=== PATIENT | female | born 1975 | race Caucasian/White ===

== ENCOUNTER 2024-09-08 03:33 | Day surgery (SDC) | payer OTHER, SELFPAY ==
[2024-08-31 14:32] VITALS: BMI 21.6
--- NOTE | 2024-08-31 14:41 | PC.NURSE ---
Report to the Outpatient Waiting Room, entrance under the green pavilion located off [facility], at time _0830_ on date _[id number]_. Planned Procedure Time: _1030_.? Time changes happen often and if your time is changed the preop area will call you the afternoon before. - You and your visitor will be asked to self-screen and do not enter if you have any COVID symptoms. Please call surgeon if you need to reschedule. - A mask is optional within the hospital at this time. Patients may have clear liquids (water, carbonated beverages, clear teas, apple juice) until 3 hours prior to surgery with a maximum of 20 ounces. - No food from midnight until time of surgery and no smoking, or chewing tobacco (or any form of nicotine). No chewing gum, candy or mints. Take only the following medications with a SIP of water on the morning of surgery: ___None____ DO NOT STOP ANY OF YOUR OTHER PRESCRIPTION MEDICATIONS PRIOR TO SURGERY EXCEPT THE FOLLOWING Hold all vitamins and supplements for 3 days per anesthesiologist. Medications to discontinue per physician Date to take last dose Please no make-up, nail indian, hairspray, perfume, deodorant, or body powder the day of surgery.? No jewelry (including any body piercings) or valuables the day of surgery, leave them at home.? Please take a shower or bath the night before, or the morning of, surgery with an antibacterial soap.? Wear comfortable, loose fitting clothing.? - Jewelry must be removed prior to entering the operating room.? Rings and piercings that are not removed may be cut off. - The hospital will not accept responsibility for valuables.? - Please leave all valuables, including medications, at home the day of surgery. If you are going home after surgery, a licensed pick up and delivery driver must drive you home.? - NO public transportation without another adult if you receive anesthesia. - We recommend that an adult stay with you for 24 hours following discharge. - We also recommend that you do not drive, make important decision, drink alcoholic beverages, or take any drugs that were not prescribed by your health care provider for at least 24 hours after your discharge time. Follow any additional instructions given to you from your surgeon. Telephone instructions given to __Wendy___and asked if any additional questions and then verbalized understanding. Patient advised to call surgeon office or pre surgery nurse liaison [phone] if any additional questions.
[2024-09-08] VITALS (7 sets, daily range): BP systolic 117–147; BP diastolic 63–98; PULSE 81–97; RESP 12–16; TEMP 36.4–36.6; O2SAT 94–100; BMI 21.9
--- OUTSIDE RECORDS SUMMARY | 2024-09-08 03:36 | XMS_ITS | Encounter Summary ---
Author Organization [employer] Address [address] [place] [address] Care Team Providers Care Certified Master Locksmith Name Role Phone Sheridan Ferrer Primary Care Provider +1- [phone] Encounter Details Date Type Department Care Team (Late st Contact Info) Description 06/12/2004 Outpatient Historical [facility] Barbara Paula Er, Authorized P NO ADDRESS ON FILE HEADACHE (Primary Dx) Social History Tobacco Use Types Packs/Day Years Used Date Smoking Tobacco: Never Assessed Comments Unknown Sex and Gender Information Value Date Recorded Sex Assigned at Not on file Legal Sex Female 4:10 AM INSPECTOR PLUG SEAM Gender Identity Not on file Sexual Orientation Not on file documented as of this encounter Plan of Treatment Not on file documented as of this encounter Procedures Procedure Name Priority Date/Time Associated Diagnosis Comments CK Routine 06/12/2004 1:44 PM INSPECTOR PLUG SEAM documented in this encounter Results * CK (06/12/2004 1:44 PM INSPECTOR PLUG SEAM) CK 52 10 - 145 U/L INTERFACE SYSTEM 06/12/2004 1:44 PM INSPECTOR PLUG SEAM us Barbara Hill CHEMISTRY ORDERABLES Final Resul t INTERFACE SYSTEM Refer to clinic/hospital department documented in this encounter Visit Diagnoses Diagnosis Headache(784.0)- Primary Headache documented in this encounter Additional Health Concerns Infection Onset Date Last Indicated Resolved Time R/O COVID-19 02/01/2024 02/01/2024 02/01/2024 10:5 1 AM INSPECTOR PLUG SEAM documented as of this encounter Care Teams Certified Master Locksmith Relationship Specialty Start Date End Date Sheridan Ferrer PA PCP - General Physician Block Cleaner 02/02/18 documented as of this encounter
--- OUTSIDE RECORDS SUMMARY | 2024-09-08 03:36 | XMS_ITS | Encounter Summary ---
Author Organization [employer] Address [address] [place] [address] Care Team Providers Care Coordinate Measuring Machine Operator Name Role Phone Sheridan Ferrer Primary Care Provider +1- [phone] Encounter Details Date Type Department Care Team (Late st Contact Info) Description 10/07/1999 Outpatient Historical [facility] Carlos Donald MD [address] [facility] [address] [place] [id number] Social History Tobacco Use Types Packs/Day Years Used Date Smoking Tobacco: Never Assessed Comments Unknown Sex and Gender Information Value Date Recorded Sex Assigned at Not on file Legal Sex Female 4:10 AM COMPUTER TESTER Gender Identity Not on file Sexual Orientation Not on file documented as of this encounter Plan of Treatment Not on file documented as of this encounter Visit Diagnoses Not on filedocumented in this encounter Additional Health Concerns Infection Onset Date Last Indicated Resolved Time R/O COVID-19 02/01/2024 02/01/2024 02/01/2024 10:5 1 AM COMPUTER TESTER documented as of this encounter Care Teams Coordinate Measuring Machine Operator Relationship Specialty Start Date End Date Sheridan Ferrer PA PCP - General Physician Office Manager 02/02/18 documented as of this encounter
--- OUTSIDE RECORDS SUMMARY | 2024-09-08 03:36 | XMS_ITS | Encounter Summary ---
Author Organization [employer] Address [address] [place] [address] Care Team Providers Care Roller Skates Assembler Name Role Phone Sheridan Ferrer Primary Care Provider +1- [phone] Encounter Details Date Type Department Care Team (Late st Contact Info) Description 06/12/2004 Outpatient Historical [facility] RADIOLOG[facility] Reymundo Dye MD [address] [place] [address] MIGRAINE NOS W/O MENTN INTRACTABLE (Primary Dx) Social History Tobacco Use Types Packs/Day Years Used Date Smoking Tobacco: Never Assessed Comments Unknown Sex and Gender Information Value Date Recorded Sex Assigned at Not on file Legal Sex Female 4:10 AM WEAVING TEACHER Gender Identity Not on file Sexual Orientation Not on file documented as of this encounter Plan of Treatment Not on file documented as of this encounter Visit Diagnoses Diagnosis Migraine, unspecified, without mention of intractable migraine without mention of status migrainosus- Primary documented in this encounter Additional Health Concerns Infection Onset Date Last Indicated Resolved Time R/O COVID-19 02/01/2024 02/01/2024 02/01/2024 10:5 1 AM WEAVING TEACHER documented as of this encounter Care Teams Roller Skates Assembler Relationship Specialty Start Date End Date Sheridan Ferrer PA PCP - General Physician Fitness Services Manager 02/02/18 documented as of this encounter
--- OUTSIDE RECORDS SUMMARY | 2024-09-08 03:36 | XMS_ITS | Encounter Summary ---
Author Organization [facility] Address [address] [place] [address] Care Team Providers Care Information Engineer Name Role Phone Sheridan Ferrer Primary Care Provider +1- [phone] Encounter Details Date Type Department Care Team (Late st Contact Info) Description 06/12/2004 Outpatient Historical [facility] [address] [place] [address] Yung Betancourt MD [address] [facility] [address] [address] Social History Tobacco Use Types Packs/Day Years Used Date Smoking Tobacco: Never Assessed Comments Unknown Sex and Gender Information Value Date Recorded Sex Assigned at Not on file Legal Sex Female 4:10 AM UPFITTER Gender Identity Not on file Sexual Orientation Not on file documented as of this encounter Plan of Treatment Not on file documented as of this encounter Visit Diagnoses Not on filedocumented in this encounter Additional Health Concerns Infection Onset Date Last Indicated Resolved Time R/O COVID-19 02/01/2024 02/01/2024 02/01/2024 10:5 1 AM UPFITTER documented as of this encounter Care Teams Information Engineer Relationship Specialty Start Date End Date Sheridan Ferrer PA PCP - General Physician Wood Box Maker 02/02/18 documented as of this encounter
--- OUTSIDE RECORDS SUMMARY | 2024-09-08 03:36 | XMS_ITS | Encounter Summary ---
Author Organization [facility] Address [address] [place] [address] Care Team Providers Care Label Drier Name Role Phone Sheridan Ferrer Primary Care Provider +1- [phone] Encounter Details Date Type Department Care Team (Late st Contact Info) Description 06/11/2000 Outpatient Historical [facility] Medicine [place] [address] [facility] [address] [place] [address] Yg Elliott MD [address] [place] [address] Social History Tobacco Use Types Packs/Day Years Used Date Smoking Tobacco: Never Assessed Comments Unknown Sex and Gender Information Value Date Recorded Sex Assigned at Not on file Legal Sex Female 4:10 AM BAGGAGE PORTER HEAD Gender Identity Not on file Sexual Orientation Not on file documented as of this encounter Plan of Treatment Not on file documented as of this encounter Visit Diagnoses Not on filedocumented in this encounter Additional Health Concerns Infection Onset Date Last Indicated Resolved Time R/O COVID-19 02/01/2024 02/01/2024 02/01/2024 10:5 1 AM BAGGAGE PORTER HEAD documented as of this encounter Care Teams Label Drier Relationship Specialty Start Date End Date Sheridan Ferrer PA PCP - General Physician Top Case Assembler 02/02/18 documented as of this encounter
--- OUTSIDE RECORDS SUMMARY | 2024-09-08 03:36 | XMS_ITS | Encounter Summary ---
Author Organization [facility] Address [address] [place] [address] Care Team Providers Care Outpatient Physical Therapist Assistant Name Role Phone Sheridan Ferrer Primary Care Provider +1- [phone] Encounter Details Date Type Department Care Team (Late st Contact Info) Description 01/23/2003 Outpatient Historical [facility] Medicine [place] [address] [place] [address] [address] [place] [address] Reymundo Dye MD [address] [place] [address] Social History Tobacco Use Types Packs/Day Years Used Date Smoking Tobacco: Never Assessed Comments Unknown Sex and Gender Information Value Date Recorded Sex Assigned at Not on file Legal Sex Female 4:10 AM BUSINESS ANALYTICS FACULTY MEMBER Gender Identity Not on file Sexual Orientation Not on file documented as of this encounter Plan of Treatment Not on file documented as of this encounter Visit Diagnoses Not on filedocumented in this encounter Additional Health Concerns Infection Onset Date Last Indicated Resolved Time R/O COVID-19 02/01/2024 02/01/2024 02/01/2024 10:5 1 AM BUSINESS ANALYTICS FACULTY MEMBER documented as of this encounter Care Teams Outpatient Physical Therapist Assistant Relationship Specialty Start Date End Date Sheridan Ferrer PA PCP - General Physician Business Analytics Faculty Member 02/02/18 documented as of this encounter
--- OUTSIDE RECORDS SUMMARY | 2024-09-08 03:36 | XMS_ITS | Clinical Summary ---
Author Organization [facility] Address [address] [place] [address] Care Team Providers Care Bankruptcy Attorney Name Role Phone Sheridan Ferrer Primary Care Provider +1- [phone] Allergies Active Allergy Reactions Criticality Noted Date Comments Penicillins Anaphylaxis High 01/18/2010 Medications erenumab-aooe 140 mg/mL auto-injector INJECT 140MG (THE CONTENTS OF 1 AUTO-INJECTOR) SUBCUTANEOUSLY EVERY 30 DAYS 06/08/19 20 Active lisinopriL (PRINIVIL,ZESTRIL) 20 mg tablet Take 20 mg by mouth daily 07/18/19 20 Active sertraline (ZOLOFT) 50 mg tablet daily 02/01/20 20 Active SUMAtriptan-naprox en (TREXIMET) 85-500 mg per tablet TAKE 1 TAB BY MOUTH ONCE NEEDED FOR MIGRAINE. MAY REPEAT DOSE ONCE AFTER.. 04/14/19 18 Active topiramate (TOPAMAX) 50 mg tablet daily 09/27/19 20 Active metoclopramide (REGLAN) 10 mg tablet Take 10 mg by mouth 05/15/19 21 Active ondansetron ODT (ZOFRAN-ODT) 4 mg disintegrating tablet Take 4 mg by mouth every 8 (eight) hours as needed for nausea or vomiting Active cyanocobalamin (Vitamin B-12) 1,000 mcg/mL injectionIndicatio ns:Vitamin B12 Deficiency Inject 1 mL (1,000 mcg total) under the skin once a week for 30 days, THEN 1 mL (1,000 mcg total) every 14 (fourteen) days for 30 days, THEN 1 mL (1,000 mcg total) every 30 (thirty) days. Inject as directed. 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 Abdominal distention 02/26/2021 Nausea and vomiting 02/26/2021 Surgical History Surgery Date Site/Laterality Comments CHOLECYSTECTOMY HYSTERECTOMY SALPINGOOPHORECTOMY OTHER SURGICAL HISTORY Bladder stimulator Medical History Medical History Date Comments Chronic constipation Hypertension Migraine Family History Medical History Relation Name Comments Coronary artery disease Father Hypertension Father Diabetes Maternal Grandmother Relation Name Status Comments Father Alive Maternal Grandmother Mother Alive Social History Tobacco Use Types Packs/Day Years Used Date Smoking Tobacco: Every Day Cigarettes 0.2 15 AUDIT-C Answer Date Recorded Q1: How often do you have a drink containing alc ohol? 2-4 times a month 02/26/2021 Q2: How many drinks containi ng alcohol do you have on a typical day when you are drinking? 1 or 2 02/26/2021 Q3: How often do you have si x or more drinks on one occasion? Never 02/26/2021 Comments Unknown Sex and Gender Information Value Date Recorded Sex Assigned at Not on file Legal Sex Female 6:11 PM PARKING OFFICER Gender Identity Not on file Sexual Orientation Not on file Obstetrics History Last Filed Vital Signs Vital Sign Reading Time Taken Comments Blood Pressure 137/87 02/26/2021 8:36 AM PARKING OFFICER Pulse 85 02/26/2021 8:36 AM PARKING OFFICER Temperature 36.8 C (98.3 F) 02/26/2021 8:36 AM PARKING OFFICER Respiratory Rate - - Oxygen Saturation - - Inhaled Oxygen Concentration - - Weight 65.3 kg (144 lb) 02/26/2021 8:36 AM PARKING OFFICER Height 170.2 cm (5' 7) 02/26/2021 8:36 AM PARKING OFFICER Body Mass Index 22.55 02/26/2021 8:36 AM PARKING OFFICER Plan of Treatment Not [place] [address] [facility] [place] [address] [facility] Member Subscriber Plan / Payer (Ef fective 2018-Present) Name:ElleCorina Relation to Subscriber:Spouse Name:JACQUIE ALMEIDA Date of :1899 Payer ID:[id number] (NA) Type:[facility] HMO/PPO Address: [place] [id number] [place] [address] Care Teams Bankruptcy Attorney Relationship Specialty Start Date End Date Sheridan Ferrer PA [address] [facility] [place] [id number] PCP - General 04/30/20
--- OUTSIDE RECORDS SUMMARY | 2024-09-08 03:36 | XMS_ITS | Encounter Summary ---
Author Organization [facility] Address [address] [place] [address] Care Team Providers Care Field Service Manager Name Role Phone Sheridan Ferrer Primary Care Provider +1- [phone] Encounter Details Date Type Department Care Team (Late st Contact Info) Description 03/09/2000 Outpatient Historical [facility] Medicine [address] [place] [address] Jordan Mora Social History Tobacco Use Types Packs/Day Years Used Date Smoking Tobacco: Never Assessed Comments Unknown Sex and Gender Information Value Date Recorded Sex Assigned at Not on file Legal Sex Female 4:10 AM AUTOMOBILE DAMAGE FIELD APPRAISER Gender Identity Not on file Sexual Orientation Not on file documented as of this encounter Plan of Treatment Not on file documented as of this encounter Visit Diagnoses Not on filedocumented in this encounter Additional Health Concerns Infection Onset Date Last Indicated Resolved Time R/O COVID-19 02/01/2024 02/01/2024 02/01/2024 10:5 1 AM AUTOMOBILE DAMAGE FIELD APPRAISER documented as of this encounter Care Teams Field Service Manager Relationship Specialty Start Date End Date Sheridan Ferrer PA PCP - General Physician Manager Graphic 02/02/18 documented as of this encounter
--- OUTSIDE RECORDS SUMMARY | 2024-09-08 03:36 | XMS_ITS | Encounter Summary ---
Author Organization [facility] Address [address] [place] [address] Phone Care Team Providers Care Director Of National Sales Name Role Phone Sheridan Ferrer Primary Care Provider +1- [phone] Encounter Details Date Type Department Care Team (Late st Contact Info) Description 10/04/2021 Orders Only [facility] Scanning, Provider Social History Tobacco Use Types Packs/Day Years [...] on file Legal Sex Female 6:11 PM HYPOID GEAR GENERATOR Gender Identity Not on file Sexual Orientation Not on file documented as of this encounter Plan of Treatment Not on file documented as of this encounter Procedures Procedure Name Priority Date/Time Associated Diagnosis Comments SCAN - LABS 10/04/2021 documented in this encounter Results * SCAN - LABS (10/04/2021) us Provider Scanning Edited Result - Final documented in this encounter Visit Diagnoses Not on filedocumented in this encounter Care Teams Director Of National Sales Relationship Specialty Start Date End Date Sheridan Ferrer PA [address] [facility] [place] [address] PCP - General 04/30/20 documented as of this encounter
--- OUTSIDE RECORDS SUMMARY | 2024-09-08 03:36 | XMS_ITS | Encounter Summary ---
Author Organization [facility] Address [address] [place] [address] Phone Care Team Providers Care Pot Puncher Name Role Phone Sheridan Ferrer Primary Care Provider +1- [phone] Encounter Details Date Type Department Care Team ([facility] Contact Info) Description 06/04/2021 Orders Only [facility] Scanning, Provider Social [...] on file Legal Sex Female 6:11 PM UTILITY WORKER FILM PROCESSING Gender Identity Not on file Sexual Orientation Not on file documented as of this encounter Plan of Treatment Not on file documented as of this encounter Procedures Procedure Name Priority Date/Time Associated Diagnosis Comments SCAN - LABS 06/04/2021 documented in this encounter Results * SCAN - LABS (06/04/2021) us Provider Scanning Final Result documented in this encounter Visit Diagnoses Not on filedocumented in this encounter Care Teams Pot Puncher Relationship Specialty [place] [address] [place], [place] [address], [place] [address] PCP - General 04/30/20 documented as of this encounter
--- OUTSIDE RECORDS SUMMARY | 2024-09-08 03:36 | XMS_ITS | Encounter Summary ---
Author Organization [employer] Address [address] [place] [address] Care Team Providers Care Vice President Compliance Name Role Phone Sheridan Ferrer Primary Care Provider +1- [phone] Encounter Details Date Type Department Care Team (Latest Contact Info) Description 10/25/2001 Outpatient Historical [facility] WASH Gabriel Mcgrath MD [address] [place] [address] FOREIGN BDY EXT EYE NOS (Primary Dx) Social History Tobacco Use Types Packs/Day Years Used Date Smoking Tobacco: Never Assessed Comments Unknown Sex and Gender Information Value Date Recorded Sex Assigned at Not on file Legal Sex Female 4:10 AM NAILHEAD OPERATOR Gender Identity Not on file Sexual Orientation Not on file documented as of this encounter Plan of Treatment Not on file documented as of this encounter Visit Diagnoses Diagnosis Foreign body in unspecified site on external eye- Primary documented in this encounter Additional Health Concerns Infection Onset Date Last Indicated Resolved Time R/O COVID-19 02/01/2024 02/01/2024 02/01/2024 10:5 1 AM NAILHEAD OPERATOR documented as of this encounter Care Teams Vice President Compliance Relationship Specialty Start Date End Date Sheridan Ferrer PA PCP - General Physician Land Conservation Specialist 02/02/18 documented as of this encounter
--- OUTSIDE RECORDS SUMMARY | 2024-09-08 03:36 | XMS_ITS ---
Author Organization [facility] Address [address] [place] [address] Care Team Providers Care Hide Tanner Name Role Phone Sheridan Estrella Primary Care Physician [phone] Provider, Abstract Attending Clinician Unavailab le Problems Condition Name Condition Details Condition Category Status Onset Date Resolution Date Last Treatment Date Treating Clinician Comments Complicated UTI (urinary tract infection) Complicated UTI (urinary tract infection) 28409359 Active 2023-03 00:00: 00 Pyelonephri tis of right kidney Pyelonephri tis of right kidney 33617619 Active 2023-03 00:00: 00 Normocytic anemia Normocytic anemia 62878702 Active 2023-03 00:00: 00 Slow transit constipatio n Slow transit constipatio n 33393333 2020-03 00:00: 00 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 n 72180090 2020-03 00:00: 00 Abdominal distention Abdominal distention 34950403 2020-03 00:00: 00 Nausea and vomiting Nausea and vomiting 61027150 Active 2020-03 00:00: 00 Deviated septum Deviated septum 09303346 Active 08-30 00:00: 00 Nasal turbinate hypertrophy Nasal turbinate hypertrophy 54846163 Active 08-30 00:00: 00 Nasal obstruction Nasal obstruction 81188550 Active 08-30 00:00: 00 Ileus Ileus 97147063 Active 2019-03 00:00: 00 Follow-up examination , following other surgery Follow-up examination , following other surgery 91371712 Active 18 00:00: 00 Stress fracture of left tibia Stress fracture of left tibia 43365117 Active 11-24 00:00: 00 Left knee pain Left knee pain 03426792 Active 11-10 00:00: 00 Knee bursitis Knee bursitis 47838411 Active 11-01 00:00: 00 Constipatio n Constipatio n 30590217 Active 2009-03 00:00: 00 IBS (irritable bowel syndrome) IBS (irritable bowel syndrome) 96355433 Active 2009-03 00:00: 00 Seizure, had 2 seizures in approx. 2003, none since. Seizure, had 2 seizures in approx. 2003, none since. 24385723 Active 2009-03 00:00: 00 Migraine with aura Migraine with aura 06649065 Active 06-11 00:00: 00 Fecal impaction Fecal impaction 84113802 Active Allergies, Adverse Reactions, Alerts Allergy Name Allergy Type Status Severity Reaction(s) Onset Date Inactive Date Treating Clinician Comments Penicillins Allergy to substance Active 2009-03 00:00: 00 Penicillins Propensity to adverse reactions to drug Active Anaphylaxis 2009-03 00:00: 00 Medications Ordered Medication Name Filled Medication Name Start Date Stop Date Current Medication? Ordering Clinician Indication Dosage Frequency Signature (SIG) Comments Components lisinopril (PRINIVIL) 20 mg tablet 2023-03 12:58: 32 Yes 20mg QD Take 20 mg by mouth daily. cyanocobala min (Vitamin B-12) 1,000 mcg/mL injection 2020-03 00:00: 00 Yes [id number] Inject 1 mL (1,000 mcg total) under the skin once a week for 30 days, THEN 1 mL (1,000 mcg total) every 14 (fourteen) days for 30 days, THEN 1 mL (1,000 mcg total) every 30 (thirty) days. Inject as directed. ondansetron ODT (ZOFRAN-ODT ) 4 mg disintegrat ing tablet 2020-03 09:07: 12 Yes 4mg Take 4 mg by mouth every 8 (eight) hours as needed for nausea or vomiting doxycycline hyclate (VIBRAMYCIN ) 100 mg tablet 12-24 00:00: 00 Yes 100mg Q.5D Take 1 Tablet (100 mg) by mouth 2 times daily. mupirocin (BACTROBAN) 2 % Ointment 12-24 00:00: 00 Yes Apply into nose once daily. prucaloprid e (Motegrity) 1 mg Tablet 907 00:00: 00 Yes 1mg QD Take 1 Tablet (1 mg) by mouth daily. valACYclovi r (VALTREX) 1 gram tablet 18 00:00: 00 Yes 2g Take 2 Grams by mouth. metoclopram goran (REGLAN) 10 mg tablet 2-16 00:00: 00 Yes 10mg Take 10 mg by mouth metoclopram goran HCl (REGLAN) 5 mg/5 mL solution 2019-03 2-22 00:00: 00 Yes [id number] 5mg Q.[id number] 3D Take 5 mL (5 mg) by mouth 3 times daily. DULoxetine (CYMBALTA) 30 mg Capsule, Delayed Release(E.C .) 2019-03 2 00:00: 00 Yes sertraline (ZOLOFT) 50 mg tablet 2019-03 1- 00:00: 00 Yes sertraline (ZOLOFT) 50 mg tablet 2019-03 104 00:00: 00 Yes QD daily topiramate (TOPAMAX) 50 mg tablet 2019-03 0-30 00:00: 00 Yes topiramate (TOPAMAX) 50 mg tablet 630 00:00: 00 Yes QD daily lisinopriL (PRINIVIL,Z ESTRIL) 20 mg tablet 4-20 00:00: 00 Yes 20mg QD Take 20 mg by mouth daily AIMOVIG AUTOINJECTO R 140 mg/mL Auto-Inject or - 00:00: 00 Yes INJECT 140MG (THE CONTENTS OF 1 AUTO-INJEC TOR) SUBCUTANEO USLY EVERY 30 DAYS erenumab-ao oe 140 mg/mL auto-inject or 06-07 00:00: 00 Yes INJECT 140MG (THE CONTENTS OF 1 AUTO-INJEC TOR) SUBCUTANEO USLY EVERY 30 DAYS ondansetron (ZOFRAN) 4 mg Tablet 2019-0 3-18 00:00: 00 Yes 4mg Q6H Take 1 Tablet (4 mg) by mouth every 6 hours as needed for Nausea/Wendy sis. polyethylen e glycol 3350 (MIRALAX ORAL) 3-08 00:00: 00 Yes 17g Take 17 Grams by mouth. SUMAtriptan -naproxen (TREXIMET) 85-500 mg tablet 04-14 00:00: 00 Yes [id number] TAKE 1 TAB BY MOUTH ONCE NEEDED FOR MIGRAINE. MAY REPEAT DOSE ONCE AFTER.. SUMAtriptan -naproxen (TREXIMET) 85-500 mg per tablet 04-14 00:00: 00 Yes TAKE 1 TAB BY MOUTH ONCE NEEDED FOR MIGRAINE. MAY REPEAT DOSE ONCE AFTER.. Procedures Procedure Date / Time Performed Performing Clinicia n Device COLONOSCOPY REPORT 2020-04-03 14:27:15 Solange Calabrese MAMMOGRAM REPORT 2017-01-16 00:00:00 Jose Napier Encounters Start Date/Time End Date/Time Encounter Type Admission Type Attending [facility] Care Department Encounter ID 2024-08-30 00:00:00 2024-08-30 18:15:04 External Device Data Provider, Abstract 1.2.840.1 [id number] 3.188.2.7 .2.710142 .20 STL ABSTRACTION [id number] 2024-08-23 00:00:00 2024-08-24 00:08:43 External Device Data Provider, Abstract 1.2.840.1 56699.1.1 3.188.2.7 .2.026342 .20 STL ABSTRACTION [id number] 2024-08-17 00:00:00 2024-08-19 18:03:02 External Device Data Provider, Abstract 1.2.840.1 87606.1.1 3.188.2.7 .2.418085 .20 STL ABSTRACTION [id number] 2024-08-16 00:00:00 2024-08-17 23:09:50 External Device Data Provider, Abstract 1.2.840.1 74394.1.1 3.188.2.7 .2.738066 .20 STL ABSTRACTION [id number] 2024-07-19 00:00:00 2024-07-19 17:12:47 External Device Data Provider, Abstract 1.2.840.1 19062.1.1 3.188.2.7 .2.213909 .20 STL ABSTRACTION [id number] 2024-07-19 00:00:00 2024-07-19 16:17:34 External Device Data Provider, Abstract 1.2.840.1 28747.1.1 3.188.2.7 .2.704067 .20 STL ABSTRACTION [id number] 2024-06-28 00:00:00 2024-06-29 05:05:38 External Device Data Provider, Abstract 1.2.840.1 85905.1.1 3.188.2.7 .2.932949 .20 STL ABSTRACTION [id number] 2024-06-21 00:00:00 2024-06-21 21:06:11 External Device Data Provider, Abstract 1.2.840.1 51221.1.1 3.188.2.7 .2.463289 .20 STL ABSTRACTION [id number] 2024-06-21 00:00:00 2024-06-21 15:53:10 External Device Data Provider, Abstract 1.2.840.1 24644.1.1 3.188.2.7 .2.642802 .20 STL ABSTRACTION [id number] 2024-06-07 00:00:00 2024-06-09 15:13:37 External Device Data Provider, Abstract 1.2.840.1 87581.1.1 3.188.2.7 .2.272908 .20 STL ABSTRACTION [id number] 2024-06-07 00:00:00 2024-06-08 07:37:40 External Device Data Provider, Abstract 1.2.840.1 40389.1.1 3.188.2.7 .2.891457 .20 STL ABSTRACTION [id number] 2024-06-04 00:00:00 2024-06-06 22:27:10 External Device Data Provider, Abstract 1.2.840.1 65393.1.1 3.188.2.7 .2.444451 .20 STL ABSTRACTION [id number] 2024-06-06 00:00:00 2024-06-06 18:48:03 External Device Data Provider, Abstract 1.2.840.1 20041.1.1 3.188.2.7 .2.220702 .20 STL ABSTRACTION [id number] 2024-06-03 00:00:00 2024-06-05 00:28:26 External Device Data Provider, Abstract 1.2.840.1 69873.1.1 3.188.2.7 .2.577806 .20 STL ABSTRACTION [id number] 2024-05-17 00:00:00 2024-05-17 20:30:38 External Device Data Provider, Abstract 1.2.840.1 09417.1.1 3.188.2.7 .2.376344 .20 STL ABSTRACTION [id number] 2024-04-26 00:00:00 2024-04-27 11:58:19 External Device Data Provider, Abstract 1.2.840.1 11786.1.1 3.188.2.7 .2.199917 .20 STL ABSTRACTION [id number] 2024-04-26 00:00:00 2024-04-26 21:15:01 External Device Data Provider, Abstract 1.2.840.1 64324.1.1 3.188.2.7 .2.767784 .20 STL ABSTRACTION [id number] 2024-04-20 00:00:00 2024-04-23 02:06:02 External Device Data Provider, Abstract 1.2.840.1 77778.1.1 3.188.2.7 .2.839787 .20 STL ABSTRACTION [id number] 2024-04-20 00:00:00 2024-04-21 10:54:11 External Device Data Provider, Abstract 1.2.840.1 04713.1.1 3.188.2.7 .2.657854 .20 STL ABSTRACTION [id number] 2024-04-12 00:00:00 2024-04-12 21:21:08 External Device Data Provider, Abstract 1.2.840.1 29950.1.1 3.188.2.7 .2.183608 .20 STL ABSTRACTION [id number] 2024-03-29 00:00:00 2024-03-29 20:14:05 External Device Data Provider, Abstract 1.2.840.1 86663.1.1 3.188.2.7 .2.857785 .20 STL ABSTRACTION [id number] Family History Family Member Diagnosis Comments Start Date Stop Date Natural father Coronary artery disease Natural father Hypertension Natural father Heart Disease Natural father Stroke Maternal grandmother Diabetes Maternal grandmother Heart Disease Maternal grandmother Hypertension Maternal grandmother Kidney Disease Natural brother Healthy Natural daughter Hypertension Natural daughter Other Maternal grandfather Other Natural mother Other Paternal grandfather Cancer Paternal grandmother Heart Disease Natural son Other Social History Social Habit Start Date Stop Date Comments Sexual orientation History of Occupation ASSERTION Gender identity Alcoholic beverage intake 2024-02-01 00:00:00 00:00:00 History of Social function 2024-02-01 00:00:00 2024-01 00:00:00 Cigarettes smoked current (p ack per day) - Reported 2012-09-07 00:00:00 2012-09-07 00:00:00 Cigarette pack-years 2012-09-07 00:00:00 2012-09-07 00 :00:00 Tobacco use and exposure 2012-09-07 00:00:00 2012-08-28 1 00:00:00 Sex 2012-02-17 04:10:42 2012-02-17 04:10:42 Tobacco Comment 2010-01-21 00:00:00 2010-01-21 00:00:0 0 Alcohol Comment 2010-01-21 00:00:00 2010-01-21 00:00:0 0 Sex assigned at 1975 00:00:00 1975 0 0:00:00 Smoking Status Start Date Stop Date Tobacco smoking consumption unknown History of tobacco use Smokes tobacco daily 2021-02-26 00:00:00 2021-01 00:00:00 Ex-smoker 2012-09-07 00:00:00 2012-09-07 0 0:00:00 Plan of Treatment Planned Activity Planned Date Details Comments Future Scheduled Test 2027-04-03 00:00:00 Colono scopy (procedure) [code = 31824473] Future Scheduled Test 2027-04-03 00:00:00 Screen ing for malignant neoplasm of colon (procedure) [code = 846806959] Future Scheduled Test 2024-09-07 09:40:00 Screen ing for malignant neoplasm of colon (procedure) [code = 081959272] Future Scheduled Test 2024-09-07 09:40:00 Screen ing for malignant neoplasm of colon (procedure) [code = 671235644] Future Scheduled Test 2024-09-07 09:40:00 Screen ing for malignant neoplasm of colon (procedure) [code = 662572249] Future Scheduled Test 2024-09-07 09:40:00 Screen ing for malignant neoplasm of colon (procedure) [code = 407217842] Future Scheduled Test 2024-09-07 09:40:00 Screen ing for malignant neoplasm of colon (procedure) [code = 120261783] Future Scheduled Test 2024-09-07 09:40:00 LIPID TESTING [code = LIPID TESTING] Future Scheduled Test 2024-09-07 09:40:00 MAMMOGRAM [c ode = MAMMOGRAM] Future Scheduled Test 2024-09-07 09:40:00 HIV SC REENING [code = HIV SCREENING] Future Scheduled Test 2024-09-07 09:40:00 HEPATI TIS C SCREENING [code = HEPATITIS C SCREENING] Future Scheduled Test 2024-09-07 09:40:00 Admini stration of third dose of vaccine product containing only acellular Bordetella pertussis and Clostridium tetani and Corynebacterium diphtheriae antigens (procedure) [code = 183994520] Future Scheduled Test 2024-09-07 09:40:00 Admini stration of vaccine product containing only Hepatitis B virus antigen (procedure) [code = 91869083] Future Scheduled Test 2024-09-07 09:40:00 PAP SMEAR [c ode = PAP SMEAR] Future Scheduled Test 2024-09-07 09:40:00 PAP wi th HPV [code = PAP with HPV] Future Scheduled Test 2024-09-07 09:40:00 COVID- 19 VACCINE ( season) [code = COVID-19 VACCINE ( season)] Future Scheduled Test 2024-09-07 09:40:00 DEPRES EUNICE SCREENING [code = DEPRESSION SCREENING] Future Scheduled Test 2024-09-07 09:40:00 Admini stration of vaccine product containing only Influenza virus antigen (procedure) [code = 78511543] Future Scheduled Test 2024-09-07 09:40:00 ZOSTER VACCINE (1 of 2) [code = ZOSTER VACCINE (1 of 2)] Future Scheduled Test 2024-09-07 09:40:00 Screen ing for malignant neoplasm of colon (procedure) [code = 762152865] Future Scheduled Test 2024-09-07 09:40:00 Screen ing for malignant neoplasm of colon (procedure) [code = 160637827] Diagnostic Test Pending 2023-10-29 00:00:00 INFL UENZA VACCINE (#1) [code = INFLUENZA VACCINE (#1)] Diagnostic Test Pending 2020-10-25 00:00:00 Scre ening for malignant neoplasm of colon (procedure) [code = 457983885] Diagnostic Test Pending 2020-10-25 00:00:00 Scre ening for malignant neoplasm of colon (procedure) [code = 107936709] Diagnostic Test Pending 2020-10-25 00:00:00 Scre ening for malignant neoplasm of colon (procedure) [code = 456710170] Diagnostic Test Pending 2018-01-16 00:00:00 Scre ening for malignant neoplasm of breast (procedure) [code = 990395979] Diagnostic Test Pending 1994-10-25 00:00:00 DTAP /TDAP/TD VACCINES (1 - Tdap) [code = DTAP/TDAP/TD VACCINES (1 - Tdap)] Diagnostic Test Pending 1994-10-25 00:00:00 Admi nistration of vaccine product containing only Hepatitis B virus antigen (procedure) [code = 85488033] Vital Signs Vital Name Observation Time Observation Value Commen ts Systolic blood pressure 2024-02-04 12:00:00 135 mm[Hg] Diastolic blood pressure 2024-02-04 12:00:00 66 mm[Hg] Heart rate 2024-02-04 12:00:00 71 /min Body temperature 2024-02-04 12:00:00 37.17 Denise Respiratory rate 2024-02-04 12:00:00 16 /min Oxygen saturation in Arteria l blood by Pulse oximetry 2024-02-04 12:00:00 99 % Body height 2024-02-01 13:17:00 170.2 cm Body weight 2024-02-01 13:17:00 65.091 kg BMI 2024-02-01 13:17:00 22.48 kg/m2 Systolic blood pressure 2021-02-26 08:36:00 137 mm[Hg] Diastolic blood pressure 2021-02-26 08:36:00 87 mm[Hg] Heart rate 2021-02-26 08:36:00 85 /min Body temperature 2021-02-26 08:36:00 36.83 Denise Height 2021-02-26 08:36:00 170.2 cm Body Weight 2021-02-26 08:36:00 65.318 kg BMI 2021-02-26 08:36:00 22.55 kg/m2
--- OUTSIDE RECORDS SUMMARY | 2024-09-08 03:36 | XMS_ITS | Referral Summary ---
Author Organization [facility] Address [address] [place] [address] Care Team Providers Care Director Telecommunications Name Role Phone Sheridan Ferrer Primary Care Provider [phone]- [phone] Allergies Active Allergy Reactions Criticality Noted Date [...] Abdominal distention 02/26/2021 Nausea and vomiting 02/26/2021 Social History Tobacco Use Types Packs/Day Years [...] on file Legal Sex Female 6:11 PM NEW MEDIA STRATEGIST Gender Identity Not on file Sexual Orientation Not on file Last Filed Vital Signs Vital Sign Reading Time Taken Comments Blood Pressure 137/87 02/26/2021 8:36 AM NEW MEDIA STRATEGIST Pulse 85 02/26/2021 8:36 AM NEW MEDIA STRATEGIST Temperature 36.8 C (98.3 F) 02/26/2021 8:36 AM NEW MEDIA STRATEGIST Respiratory Rate - - Oxygen Saturation - - Inhaled Oxygen Concentration - - Weight 65.3 kg (144 lb) 02/26/2021 8:36 AM NEW MEDIA STRATEGIST Height 170.2 cm (5' 7) 02/26/2021 8:36 AM NEW MEDIA STRATEGIST Body Mass Index 22.55 02/26/2021 8:36 AM NEW MEDIA STRATEGIST Plan of Treatment Not on file Insurance [facility] [place] [address] [facility] [place] [id number] Care Teams Director Telecommunications Relationship Specialty Start Date End Date Sheridan Ferrer PA [address] [facility] [place] [address] PCP - General 04/30/20
--- OUTSIDE RECORDS SUMMARY | 2024-09-08 03:36 | XMS_ITS | Clinical Summary ---
Author Organization [facility] Address [address] [place] [address] Care Team Providers Care Calibration Specialist Name Role Phone Sheridan Ferrer Primary Care Provider Source Comments [facility],non-owned Affiliates and Associated Physician Practices is amultiple site organization consisting of ambulatory clinics and hospital sitesin [place], [place], [place] and [place]. This disclosure is being madepursuant to the Care Everywhere program and may not contain all information available regarding this patient. 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 Gender Identity Not on file Sexual Orientation Not on file Plan of Treatment Health Maintenance Due Date Last Done Comments COLOGUARD (AGES 45-75) - COL ON CA SCREENING 1975 COLON MONITORING 1975 COLONOSCOPY - COLON CA SCREENING 1975 CT COLONOGRAPHY - COLON CA SCREENING 1975 Colorectal Cancer Screening 1975 FIT - COLON CA SCREENING 1975 FLEX SIG - COLON CA SCREENING 1975 LIPID TESTING 1975 MAMMOGRAM 1975 HIV SCREENING 10/25/1990 HEPATITIS C SCREENING 10/21/1993 DTAP/TDAP/TD VACCINES (1 - Tdap) 10/25/1994 HEPATITIS B VACCINE (1 of 3 - 19+ 3-dose series) 10/25/1994 PAP SMEAR 10/25/1996 PAP with HPV 10/25/2005 COVID-19 VACCINE (2023-2 5 season) 2023 DEPRESSION SCREENING 03/30/2024 INFLUENZA VACCINE (Season Ended) 2024 ZOSTER VACCINE (1 of 2) 10/25/2025 HIB VACCINE Aged Out No longer eligi ble based on patient's age to complete this topic HPV VACCINE Aged Out No longer eligi ble based on patient's age to complete this topic MENINGOCOCCAL (Group B) VACC INE SHARED DECISION-MAKING Aged Out No longer eligibl e based on patient's age to complete this topic MENINGOCOCCAL GROUPS A/C/Y/W VACCINE Aged Out No longer eligible b ased on patient's age to complete this topic PNEUMOCOCCAL VACCINE Aged Out No long er eligible based on patient's age to complete this topic Care Teams Calibration Specialist Relationship Specialty Start Date End Date Sheridan Ferrer PA [address] [place] [address] Veronica Mcgowan, [id number] PCP - General Physician Welder Shielded Metal Arc 12/07/22
--- OUTSIDE RECORDS SUMMARY | 2024-09-08 03:36 | XMS_ITS | Encounter Summary ---
Author Organization [facility] Address [address] [place] [address] Care Team Providers Care Mortgage Originator Name Role Phone Sheridan Ferrer Primary Care Provider [phone]- [phone] Encounter Details Date Type Department Care Team (Late st Contact Info) Description 06/11/2000 Outpatient Historical [facility] Medicine [address] [place] [address] Reymundo Dye MD [address] [place] [id number] Social History Tobacco Use Types Packs/Day Years Used Date Smoking Tobacco: Never Assessed Comments Unknown Sex and Gender Information Value Date Recorded Sex Assigned at Not on file Legal Sex Female 4:10 AM APPLICATION ENGINEER Gender Identity Not on file Sexual Orientation Not on file documented as of this encounter Plan of Treatment Not on file documented as of this encounter Visit Diagnoses Not on filedocumented in this encounter Additional Health Concerns Infection Onset Date Last Indicated Resolved Time R/O COVID-19 02/01/2024 02/01/2024 02/01/2024 10:5 1 AM APPLICATION ENGINEER documented as of this encounter Care Teams Mortgage Originator Relationship Specialty Start Date End Date Sheridan Ferrer PA PCP - General Physician Family Psychologist 02/02/18 documented as of this encounter
--- OUTSIDE RECORDS SUMMARY | 2024-09-08 03:36 | XMS_ITS | Encounter Summary ---
Author Organization [facility] Address [address] [place] [address] Care Team Providers Care Entry Level Machine Operator Name Role Phone Sheridan Ferrer Primary Care Provider [phone]- [phone] Encounter Details Date Type Department Care Team (Late st Contact Info) Description 06/12/2004 Outpatient Historical [facility] Mike River MD [address] [place] [address] [address] [place] [id number] CONVULSIONS, OTHER (CMS/HCC) (Primary Dx) Social History Tobacco Use Types Packs/Day Years Used Date Smoking Tobacco: Never Assessed Comments Unknown Sex and Gender Information Value Date Recorded Sex Assigned at Not on file Legal Sex Female 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 Gender Identity Not on file Sexual Orientation Not on file documented as of this encounter Plan of Treatment Not on file documented as of this encounter Procedures Procedure Name Priority Date/Time Associated Diagnosis Comments PROLACTIN Routine 06/12/2004 11:15 AM PERENNIAL HOUSE MANAGER documented in this encounter Results * PROLACTIN (06/12/2004 11:15 AM PERENNIAL HOUSE MANAGER) PROLACTIN 21.3 3.4 - 24.1 ng/mL INTERFACE SYSTEM Comment: Prolactin Reference Range: Female: Non 2.8 - 17.7 ng/mL 9.7 - 208.5 ng/mL Postmenopausal 1.8 - 20.3 ng/mL 06/12/2004 11:1 5 AM PERENNIAL HOUSE MANAGER us Mike River MD CHEMISTRY ORDERABLES Final R esult INTERFACE SYSTEM Refer to clinic/hospital department documented in this encounter Visit Diagnoses Diagnosis Other convulsions- Primary documented in this encounter Additional Health Concerns Infection Onset Date Last Indicated Resolved Time R/O COVID-19 02/01/2024 02/01/2024 02/01/2024 10:5 1 AM PERENNIAL HOUSE MANAGER documented as of this encounter Care Teams Entry Level Machine Operator Relationship Specialty Start Date End Date Sheridan Ferrer PA PCP - General Physician Player Development Manager 02/02/18 documented as of this encounter
--- OUTSIDE RECORDS SUMMARY | 2024-09-08 03:36 | XMS_ITS | Encounter Summary ---
Author Organization [facility] Address 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
--- OUTSIDE RECORDS SUMMARY | 2024-09-08 03:36 | XMS_ITS | Encounter Summary ---
Author Organization [facility] Address [address] [place] [address] Care Team Providers Care Finish Inspector Name Role Phone Sheridan Ferrer Primary Care Provider +1- [phone] Encounter Details Date Type Department Care Team (Late st Contact Info) Description 08/18/1998 Outpatient Historical [facility] Medicine [address] [place] [id number] Jordan Mora Social History Tobacco Use Types Packs/Day Years Used Date Smoking Tobacco: Never Assessed Comments Unknown Sex and Gender Information Value Date Recorded Sex Assigned at Not on file Legal Sex Female 4:10 AM SPOT CHECKER Gender Identity Not on file Sexual Orientation Not on file documented as of this encounter Plan of Treatment Not on file documented as of this encounter Visit Diagnoses Not on filedocumented in this encounter Additional Health Concerns Infection Onset Date Last Indicated Resolved Time R/O COVID-19 02/01/2024 02/01/2024 02/01/2024 10:5 1 AM SPOT CHECKER documented as of this encounter Care Teams Finish Inspector Relationship Specialty Start Date End Date Sheridan Ferrer PA PCP - General Physician Insole And Outsole Preparer 02/02/18 documented as of this encounter
--- OUTSIDE RECORDS SUMMARY | 2024-09-08 03:36 | XMS_ITS | Encounter Summary ---
Author Organization [facility] Address [address] [place] [address] Care Team Providers Care Svp Research & Ebusiness Operations Name Role Phone Sheridan Ferrer Primary Care Provider +1- [phone] Encounter Details Date Type Department Care Team (Late st Contact Info) Description 02/17/2000 Outpatient Historical [facility] Medicine [address] [place] [id number] Jordan Mora Social History Tobacco Use Types Packs/Day Years Used Date Smoking Tobacco: Never Assessed Comments Unknown Sex and Gender Information Value Date Recorded Sex Assigned at Not on file Legal Sex Female 4:10 AM CAP BLOCKER Gender Identity Not on file Sexual Orientation Not on file documented as of this encounter Plan of Treatment Not on file documented as of this encounter Visit Diagnoses Not on filedocumented in this encounter Additional Health Concerns Infection Onset Date Last Indicated Resolved Time R/O COVID-19 02/01/2024 02/01/2024 02/01/2024 10:5 1 AM CAP BLOCKER documented as of this encounter Care Teams Svp Research & Ebusiness Operations Relationship Specialty Start Date End Date Sheridan Ferrer PA PCP - General Physician Gear Shaper 02/02/18 documented as of this encounter
--- OUTSIDE RECORDS SUMMARY | 2024-09-08 03:36 | XMS_ITS | Encounter Summary ---
Author Organization [facility] Address [address] [place] [address] Care Team Providers Care Technical Writer And Editor Name Role Phone Sheridan Ferrer Primary Care Provider +1- [phone] Encounter Details Date Type Department Care Team (Latest Contact Info) Description 05/29/1998 Outpatient Historical [facility] Roger Delgado MD [address] [place] [address] Dysplasia of cervix (uteri) (Primary Dx) Social History Tobacco Use Types Packs/Day Years Used Date Smoking Tobacco: Never Assessed Comments Unknown Sex and Gender Information Value Date Recorded Sex Assigned at Not on file Legal Sex Female 4:10 AM SEISMOGRAPH OPERATOR HELPER Gender Identity Not on file Sexual Orientation Not on file documented as of this encounter Plan of Treatment Not on file documented as of this encounter Visit Diagnoses Diagnosis Dysplasia of cervix (uteri)- Primary documented in this encounter Additional Health Concerns Infection Onset Date Last Indicated Resolved Time R/O COVID-19 02/01/2024 02/01/2024 02/01/2024 10:5 1 AM SEISMOGRAPH OPERATOR HELPER documented as of this encounter Care Teams Technical Writer And Editor Relationship Specialty Start Date End Date Sheridan Ferrer PA PCP - General Physician Sheet Sewer 02/02/18 documented as of this encounter
--- OUTSIDE RECORDS SUMMARY | 2024-09-08 03:36 | XMS_ITS | Encounter Summary ---
Author Organization [facility] Address [address] [place] [address] Care Team Providers Care Communications Representative Name Role Phone Sheridan Ferrer Primary Care Provider +1- [phone] Encounter Details Date Type Department Care Team (Late st Contact Info) Description 03/14/1999 Outpatient Historical [facility] Medicine [address] [place] [address] Jordan Mora Social History Tobacco Use Types Packs/Day Years Used Date Smoking Tobacco: Never Assessed Comments Unknown Sex and Gender Information Value Date Recorded Sex Assigned at Not on file Legal Sex Female 4:10 AM PHILANTHROPY OFFICER Gender Identity Not on file Sexual Orientation Not on file documented as of this encounter Plan of Treatment Not on file documented as of this encounter Visit Diagnoses Not on filedocumented in this encounter Additional Health Concerns Infection Onset Date Last Indicated Resolved Time R/O COVID-19 02/01/2024 02/01/2024 02/01/2024 10:5 1 AM PHILANTHROPY OFFICER documented as of this encounter Care Teams Communications Representative Relationship Specialty Start Date End Date Sheridan Ferrer PA PCP - General Physician Laborer Brush Clearing 02/02/18 documented as of this encounter
--- OUTSIDE RECORDS SUMMARY | 2024-09-08 03:36 | XMS_ITS | Encounter Summary ---
Author Organization [facility] Address [address] [place] [address] Care Team Providers Care Industrial Court Magistrate Name Role Phone Sheridan Ferrer Primary Care Provider +1- [phone] Encounter Details Date Type Department Care Team (Late st Contact Info) Description 01/25/2001 Outpatient Historical [facility] Medicine [address] [place] [address] Jordan Mora Social History Tobacco Use Types Packs/Day Years Used Date Smoking Tobacco: Never Assessed Comments Unknown Sex and Gender Information Value Date Recorded Sex Assigned at Not on file Legal Sex Female 4:10 AM AGENCY CASHIER Gender Identity Not on file Sexual Orientation Not on file documented as of this encounter Plan of Treatment Not on file documented as of this encounter Visit Diagnoses Not on filedocumented in this encounter Additional Health Concerns Infection Onset Date Last Indicated Resolved Time R/O COVID-19 02/01/2024 02/01/2024 02/01/2024 10:5 1 AM AGENCY CASHIER documented as of this encounter Care Teams Industrial Court Magistrate Relationship Specialty Start Date End Date Sheridan Ferrer PA PCP - General Physician Plumbing Service Technician 02/02/18 documented as of this encounter
--- OUTSIDE RECORDS SUMMARY | 2024-09-08 03:36 | XMS_ITS | Encounter Summary ---
Author Organization [facility] Address [address] [place] [address] Care Team Providers Care Stone Planer Name Role Phone Sheridan Ferrer Primary Care Provider +1- [phone] Encounter Details Date Type Department Care Team (Late st Contact Info) Description 08/03/2000 Outpatient Historical [facility] Medicine [place] [address] [facility] [address] [place] [address] Yg Elliott MD [address] [place] [address] Social History Tobacco Use Types Packs/Day Years Used Date Smoking Tobacco: Never Assessed Comments Unknown Sex and Gender Information Value Date Recorded Sex Assigned at Not on file Legal Sex Female 4:10 AM LOCAL HAZMAT DRIVER Gender Identity Not on file Sexual Orientation Not on file documented as of this encounter Plan of Treatment Not on file documented as of this encounter Visit Diagnoses Not on filedocumented in this encounter Additional Health Concerns Infection Onset Date Last Indicated Resolved Time R/O COVID-19 02/01/2024 02/01/2024 02/01/2024 10:5 1 AM LOCAL HAZMAT DRIVER documented as of this encounter Care Teams Stone Planer Relationship Specialty Start Date End Date Sheridan Ferrer PA PCP - General Physician Ship Surveyor 02/02/18 documented as of this encounter
--- OUTSIDE RECORDS SUMMARY | 2024-09-08 03:36 | XMS_ITS | Clinical Summary ---
Author Organization [facility] Address [address] [address] Phone Care Team Providers Care Case Management Coordinator Name Role Phone Sheridan Ferrer Primary Care Provider +1- [phone] Allergies Active Allergy Reactions Criticality Noted Date Comments Penicillins Anaphylaxis High 01/18/2010 Medications SUMAtriptan-naprox en (TREXIMET) 85-500 mg tabletIndications: Migraine with aura and without status migrainosus, not intractable TAKE 1 TAB BY MOUTH ONCE NEEDED FOR MIGRAINE. MAY REPEAT DOSE ONCE AFTER.. 27 Tablet 04/14/19 18 Active lisinopril (PRINIVIL) 20 mg tablet Take 20 mg by mouth daily. Active ondansetron (ZOFRAN) 4 mg Tablet Take 1 Tablet (4 mg) by mouth every 6 hours as needed for Nausea/Emesis. 120 Tablet 3 06/15/19 19 Active AIMOVIG AUTOINJECTOR 140 mg/mL Auto-Injector INJECT 140MG (THE CONTENTS OF 1 AUTO-INJECTOR) SUBCUTANEOUSLY EVERY 30 DAYS 1 mL 5 06/08/19 20 Active sertraline (ZOLOFT) 50 mg tablet 02/01/20 20 Active DULoxetine (CYMBALTA) 30 mg Capsule, Delayed Release(E.C.) 03/18/20 20 Active polyethylene glycol 3350 (MIRALAX ORAL) Take 17 Grams by mouth. 06/05/19 19 Active topiramate (TOPAMAX) 50 mg tablet 01/27/20 20 Active metoclopramide HCl (REGLAN) 5 mg/5 mL solutionIndication s:Colonic pseudoobstruction, Abdominal distention,Nausea and vomiting, intractability of vomiting not specified, unspecified vomiting type Take 5 mL (5 mg) by mouth 3 times daily. 250 mL 3 03/20/20 20 Active valACYclovir (VALTREX) 1 gram tablet Take 2 Grams by mouth. 05/17/19 21 Active prucalopride (Motegrity) 1 mg Tablet Take 1 Tablet (1 mg) by mouth daily. 30 Tablet 5 12/05/19 21 Active doxycycline hyclate (VIBRAMYCIN) 100 mg tablet Take 1 Tablet (100 mg) by mouth 2 times daily. 30 Tablet 12/25/19 21 Active mupirocin (BACTROBAN) 2 % Ointment Apply into nose once daily. 15 Gram 1 12/25/19 21 Active Active Problems Patient Care Coordination No te Formatting of this note migh t be different from the original. [facility] is authorized to speak to Go Menon and Ashish Otero, also may leave messages 04/16/16 Problem Noted Date Diagnosed Date Complicated UTI (urinary tract infection) 2023 Pyelonephritis of right kidney 02/01/2024 Normocytic anemia 02/01/2024 Deviated septum 08/30/2020 Nasal turbinate hypertrophy 08/30/2020 Nasal obstruction 08/30/2020 Ileus 03/26/2020 Follow-up examination, following other surgery 0 06/14/2014 Stress fracture of left tibia 11/24/2013 Left knee pain 11/10/2013 Knee bursitis 11/01/2013 Constipation 02/04/2010 IBS (irritable bowel syndrome) 02/04/2010 Seizure, had 2 seizures in approx. 2004, none si nce. 01/21/2010 Migraine with aura 06/11/2004 Fecal impaction Resolved Problems Problem Noted Date Diagnosed Date Resolved Date Headache(784.0) 06/11/2004 03/07/2010 Migraine, unspecified, witho ut mention of intractable migraine without mention of status migrainosus 06/11/2004 03/07/2010 Family history of other musc uloskeletal diseases(V17.89) 04/08/2004 03/07/2010 Overview (04/24/2010): Updating IMO/ICD9 Code and Description Family history of other card iovascular diseases(V17.49) 04/08/2004 03/07/2010 Overview (04/24/2010): Updating IMO/ICD9 Code and Description Family history of diabetes mellitus 04/08/2004 03/07/2010 Family history of malignant neoplasm of gastrointestinal tract 04/08/2004 03/07/2010 Family history of malignant neoplasm of genital organ, unspecified 04/08/2004 03/07/2010 Encounters Date Type Department Care Team Description 08/30/2024 External Device Data STL ABSTRACTION Provider, Abstract 08/23/2024 External Device Data STL ABSTRACTION Provider, Abstract 08/17/2024 External Device Data STL ABSTRACTION Provider, Abstract 08/16/2024 External Device Data STL ABSTRACTION Provider, Abstract 07/19/2024 External Device Data STL ABSTRACTION Provider, Abstract 07/19/2024 External Device Data STL ABSTRACTION Provider, Abstract 06/28/2024 External Device Data STL ABSTRACTION Provider, Abstract 06/21/2024 External Device Data STL ABSTRACTION Provider, Abstract 06/21/2024 External Device Data STL ABSTRACTION Provider, Abstract from Last 3 Months Family History Medical History Relation Name Comments Healthy Brother 1 KEVIN Healthy Brother 2 ELIF Hypertension Daughter ASHISH Other Daughter ASHISH CHIARI MALFORMA TION Heart Disease Father ERCIL [place] Stroke Father ERCIL Other Maternal Grandfather GAETANO MORALES'S DZ. Heart Disease Maternal Grandmother Hypertension Maternal Grandmother Kidney Disease Maternal Grandmother Other Mother ELISABETH OSTEOARTHRITIS Cancer Paternal Grandfather BRAIN Heart Disease Paternal Grandmother CABG Other Son MIKE MIGRAINES Relation Name Status Comments Brother 1 KEVIN Alive Brother 2 ELIF Alive Daughter ASHISH Alive Father ERCIL Alive Maternal Grandfather Maternal Grandmother Mother ELISABETH Alive Paternal Grandfather Paternal Grandmother Alive Son MIKE Alive Social History Tobacco Use Types Packs/Day Years Used Date Smoking Tobacco: Former Cigarettes 0.5 10 0 04/29/2002 - 04/29/2012 Smokeless Tobacco: Never Tobacco Cessation:Counseling Given: No Comments:SMOKING CESSATION INFORMATION GIVEN Alcohol Use Standard Drinks/Week Comments Yes 0 (1 standard drink = 0.6 oz pur e alcohol) RARELY Feeling Safe Answer Date Recorded Are you in a relationship wi th someone who hurts you emotionally and/or physically? No 02/01/2024 Food Insecurity Answer Date Recorded Patient needs follow up regardin 07/29/2024 Transportation Needs Answer Date Record ed Patient needs follow up regardin 07/29/2024 Housing Stability Answer Date Recorded Social/Environmental Concerns No concerns Utility Needs Answer Date Recorded Patient needs follow up regardin 07/29/2024 Comments No Sex and Gender Information Value Date Recorded Sex Assigned at Not on file Legal Sex Female 4:10 AM ROLL BUILDER Gender Identity Not on file Sexual Orientation Not on file Occupation Industry Job Start Date Job End Date Not on file Not on file Not on file Not on file Last Filed Vital Signs Vital Sign Reading Time Taken Comments Blood Pressure 135/66 02/04/2024 12:00 PM ROLL BUILDER Pulse 71 02/04/2024 12:00 PM ROLL BUILDER Temperature 37.2 C (98.9 F) 02/04/2024 12:00 PM ROLL BUILDER Respiratory Rate 16 02/04/2024 12:00 PM ROLL BUILDER Oxygen Saturation 99% 02/04/2024 12:00 PM ROLL BUILDER Inhaled Oxygen Concentration - - Weight 65.1 kg (143 lb 8 oz) 02/01/2024 1:17 PM ROLL BUILDER Height 170.2 cm (5' 7) 02/01/2024 1:17 PM ROLL BUILDER Body Mass Index 22.48 02/01/2024 1:17 PM ROLL BUILDER Plan of Treatment Health Maintenance Due Date Last Done Comments DTAP/TDAP/TD VACCINES (1 - Tdap) 10/25/1994 HEPATITIS B VACCINES (1 of 3 - 19+ 3-dose series) 10/25/1994 BREAST CANCER SCREENING 01/16/2018 01/17/20 17, 01/15/2016, 12/18/2014 FIT-DNA Q 3 years 10/25/2020 FIT/FOBT Q 1 year 10/25/2020 Flex Sig/CT Colonography Q 5 years 10/25/2020 INFLUENZA VACCINE (#1) 2023 COLORECTAL SCREENING 04/03/2027 04/03/2020, 04/03/2020, 04/03/2020, Additional history exists Colorectal Cancer Screening 04/03/2027 Procedures Procedure Name Priority Date/Time Associated Diagnosis Comments COLONOSCOPY REPORT 04/03/2020 2: 27 PM ROLL BUILDER MAMMOGRAM REPORT Routine 01/16/2017 from Last 3 Months or Most Recently Relevant to Health Maintenance Results * COLONOSCOPY REPORT (04/03/2020 2:27 PM ROLL BUILDER) Narrative Procedure Note Solange Calabrese MBBS - 04/03/2020 2:26 PM CST [facility] GI Patient Name: Debra Menon Procedure Date: 04/03/2020 Date of : 1975 Admit Type: Outpatient Age: 44 Attending MD: Solange Calabrese MD Procedure: Colonoscopy Indications: Generalized abdominal pain, Change in bowel habits, Obstipation Patient Profile: This is a 44 year old female. Refer to note in patient chart for documentation of history and physical. Providers: Solange Calabrese MD Referring MD: Sheridan Ferrer Requesting Provider: Medicines: Monitored Anesthesia Care Complications: No immediate complications. Estimated blood loss: None. Procedure: After I obtained informed consent, the scope was passed under direct vision. Throughout the procedure, the patient's blood pressure, pulse, and oxygen saturations were monitored continuously. The Colonoscope was introduced through the anus and advanced to the cecum, identified by appendiceal orifice and ileocecal valve. The colonoscopy was performed without difficulty. The patient tolerated the procedure well. The quality of the bowel preparation was poor. Findings: The perianal and digital rectal examinations were normal. Extensive amounts of semi-solid solid stool was found in the entire colon, making visualization difficult. The retroflexed view of the distal rectum and anal verge was normal and showed no anal or rectal abnormalities. Impression: - Preparation of the colon was poor. - Extesnive stool in the entire examined colon. - The distal rectum and anal verge are normal on retroflexion view. - No specimens collected. Recommendation: - The patient will be observed post-procedure, until all discharge criteria are met. - Use Linzess (linaclotide) 145 mcg PO daily. Increase to 270 based on response. - Continue reglan. - Consider performing anal manometry at appointment to be scheduled; MoBAP STL - As needed use of enemas. Procedure Code(s): --- Professional --- 54681, Colonoscopy, flexible; diagnostic, including collection of specimen(s) by brushing or washing, when performed (separate procedure) Diagnosis Code(s): --- Professional --- R10.84, Generalized abdominal pain R19.4, Change in bowel habit K59.00, Constipation, unspecified CPT copyright 2018 [employer]. All rights reserved. The codes documented in this report are preliminary and upon department secretary review may be revised to meet current compliance requirements. Solange Calabrese MD 04/03/2020 2:26:12 PM Number of Addenda: 0 Estimated Blood Loss: Estimated blood loss: none. us Solange CONNERBS GI PROCEDURE ORDERABLES Nida l Result * MAMMOGRAM REPORT (01/16/2017) us Jose Napier MD MAMMO ORDERABLES Edited Result - Final [facility]# [id number] [address] [place], [place] [id number] from Last 3 Months or Most Recently Relevant to Health Maintenance Insurance [address] [address] [address] [id number] Advance Directives For more information, please contact: [phone] * Full Code (Latest Code Status on File) Date Activated Date Inactivated Comments 02/01/2024 1:30 PM 02/04/2024 3:03 PM * Full Code Date Activated Date Inactivated Comments 09/18/2020 11:04 AM 09/18/2020 6:08 PM * Full Code Date Activated Date Inactivated Comments 04/03/2020 12:28 PM 04/03/2020 4:54 PM * Default Full Code - Needs Discussion Date Activated Date Inactivated Comments 03/26/2020 11:51 PM 03/27/2020 2:23 PM * Full Code Date Activated Date Inactivated Comments 04/02/2018 6:38 AM 04/02/2018 11:19 AM Care Teams Case Management Coordinator Relationship Specialty Start Date End Date Sheridan Ferrer PA PCP - General Physician Coating Machine Operator 02/02/18
--- OUTSIDE RECORDS SUMMARY | 2024-09-08 03:36 | XMS_ITS | Encounter Summary ---
Author Organization [facility] Address [address] [place] [address] Care Team Providers Care Bench Worker Helper Name Role Phone Sheridan Ferrer Primary Care Provider +1- [phone] Encounter Details Date Type Department Care Team (Late st Contact Info) Description 03/25/2002 Outpatient Historical [facility] Medicine [address] [place] [address] Reymundo Dye MD [address] [place] [id number] Social History Tobacco Use Types Packs/Day Years Used Date Smoking Tobacco: Never Assessed Comments Unknown Sex and Gender Information Value Date Recorded Sex Assigned at Not on file Legal Sex Female 4:10 AM FOLDER HAND Gender Identity Not on file Sexual Orientation Not on file documented as of this encounter Plan of Treatment Not on file documented as of this encounter Visit Diagnoses Not on filedocumented in this encounter Additional Health Concerns Infection Onset Date Last Indicated Resolved Time R/O COVID-19 02/01/2024 02/01/2024 02/01/2024 10:5 1 AM FOLDER HAND documented as of this encounter Care Teams Bench Worker Helper Relationship Specialty Start Date End Date Shreidan Ferrer PA PCP - General Physician Machine Operator Packaging 02/02/18 documented as of this encounter
--- OUTSIDE RECORDS SUMMARY | 2024-09-08 03:36 | XMS_ITS | Encounter Summary ---
Author Organization [facility] Address [address] [place] [address] Care Team Providers Care [address] Scientist Name Role Phone Sheridan Ferrer Primary Care Provider +1- [phone] Encounter Details Date Type Department Care Team (Late st Contact Info) Description 08/23/2002 Outpatient Historical [facility] Medicine [place] [address] [place] [address] [address] [place] [address] Reymundo Dye MD [address] [place] [id number] Social History Tobacco Use Types Packs/Day Years Used Date Smoking Tobacco: Never Assessed Comments Unknown Sex and Gender Information Value Date Recorded Sex Assigned at Not on file Legal Sex Female 4:10 AM ASSISTANT TECHNICIAN Gender Identity Not on file Sexual Orientation Not on file documented as of this encounter Plan of Treatment Not on file documented as of this encounter Visit Diagnoses Not on filedocumented in this encounter Additional Health Concerns Infection Onset Date Last Indicated Resolved Time R/O COVID-19 02/01/2024 02/01/2024 02/01/2024 10:5 1 AM ASSISTANT TECHNICIAN documented as of this encounter Care Teams Rd Scientist Relationship Specialty Start Date End Date Sheridan Ferrer PA PCP - General Physician Injection Operator 02/02/18 documented as of this encounter
--- OUTSIDE RECORDS SUMMARY | 2024-09-08 03:37 | XMS_ITS | Encounter Summary ---
Author Organization [facility] Address [address] [place] [address] Care Team Providers Care Respiratory Therapy Aide Name Role Phone Sheridan Ferrer Primary Care Provider +1- [phone] Encounter Details Date Type Department Care Team (Late st Contact Info) Description 12/09/2003 Outpatient Historical [facility] Medicine [address] [place] [address] Becky Anton MD [address] [place] [address] Social History Tobacco Use Types Packs/Day Years Used Date Smoking Tobacco: Never Assessed Comments Unknown Sex and Gender Information Value Date Recorded Sex Assigned at Not on file Legal Sex Female 4:10 AM PRESSER AUTOMATIC Gender Identity Not on file Sexual Orientation Not on file documented as of this encounter Plan of Treatment Not on file documented as of this encounter Visit Diagnoses Not on filedocumented in this encounter Additional Health Concerns Infection Onset Date Last Indicated Resolved Time R/O COVID-19 02/01/2024 02/01/2024 02/01/2024 10:5 1 AM PRESSER AUTOMATIC documented as of this encounter Care Teams Respiratory Therapy Aide Relationship Specialty Start Date End Date Sheridan Ferrer PA PCP - General Physician Patient Account Specialist 02/02/18 documented as of this encounter
--- OUTSIDE RECORDS SUMMARY | 2024-09-08 03:37 | XMS_ITS | Encounter Summary ---
Author Organization [facility] Address [address] [place] [address] Care Team Providers Care Talent Development Specialist Name Role Phone Sheridan Ferrer Primary Care Provider +1- [phone] Encounter Details Date Type Department Care Team (Latest Contact Info) Description 12/21/2003 Outpatient Historical [facility] Reymundo Dye MD [address] [place] [address] CERVICALGIA (Primary Dx) Social History Tobacco Use Types Packs/Day Years Used Date Smoking Tobacco: Never Assessed Comments Unknown Sex and Gender Information Value Date Recorded Sex Assigned at Not on file Legal Sex Female 4:10 AM GIS SCIENTIST Gender Identity Not on file Sexual Orientation Not on file documented as of this encounter Plan of Treatment Not on file documented as of this encounter Visit Diagnoses Diagnosis Cervicalgia- Primary documented in this encounter Additional Health Concerns Infection Onset Date Last Indicated Resolved Time R/O COVID-19 02/01/2024 02/01/2024 02/01/2024 10:5 1 AM GIS SCIENTIST documented as of this encounter Care Teams Talent Development Specialist Relationship Specialty Start Date End Date Sheridan Ferrer PA PCP - General Physician Tourist Agent 02/02/18 documented as of this encounter
--- OUTSIDE RECORDS SUMMARY | 2024-09-08 03:37 | XMS_ITS | Encounter Summary ---
Author Organization [employer] Address [address] [place] [address] Care Team Providers Care Java Web Application Developer Name Role Phone Sheridan Ferrer Primary Care Provider +1- [phone] Encounter Details Date Type Department Care Team (Latest Contact Info) Description 02/29/2004 Outpatient Historical [facility] Reymundo Dye MD [address] [place] [address] BACKACHE NOS (Primary Dx) Social History Tobacco Use Types Packs/Day Years Used Date Smoking Tobacco: Never Assessed Comments Unknown Sex and Gender Information Value Date Recorded Sex Assigned at Not on file Legal Sex Female 4:10 AM TIRE MOLDER Gender Identity Not on file Sexual Orientation Not on file documented as of this encounter Plan of Treatment Not on file documented as of this encounter Visit Diagnoses Diagnosis Backache, unspecified- Primary documented in this encounter Additional Health Concerns Infection Onset Date Last Indicated Resolved Time R/O COVID-19 02/01/2024 02/01/2024 02/01/2024 10:5 1 AM TIRE MOLDER documented as of this encounter Care Teams Java Web Application Developer Relationship Specialty Start Date End Date Sheridan Ferrer PA PCP - General Physician Occup Therapist 02/02/18 documented as of this encounter
--- OUTSIDE RECORDS SUMMARY | 2024-09-08 03:37 | XMS_ITS | Encounter Summary ---
Author Organization [employer] Address [address] [place] [address] Care Team Providers Care Product Safety Administrator Name Role Phone Sheridan Ferrer Primary Care Provider +1- [phone] Encounter Details Date Type Department Care Team (Late st Contact Info) Description 05/02/2003 Outpatient Historical [facility] Reymundo Dye MD [address] [place] [address] DISC DIS NEC/NOS-CERV (Primary Dx) Social History Tobacco Use Types Packs/Day Years Used Date Smoking Tobacco: Never Assessed Comments Unknown Sex and Gender Information Value Date Recorded Sex Assigned at Not on file Legal Sex Female 4:10 AM LICENSED PRACTICAL NURSE INSTRUCTOR Gender Identity Not on file Sexual Orientation Not on file documented as of this encounter Plan of Treatment Not on file documented as of this encounter Visit Diagnoses Diagnosis Other and unspecified disc disorder of cervical region- Primary documented in this encounter Additional Health Concerns Infection Onset Date Last Indicated Resolved Time R/O COVID-19 02/01/2024 02/01/2024 02/01/2024 10:5 1 AM LICENSED PRACTICAL NURSE INSTRUCTOR documented as of this encounter Care Teams Product Safety Administrator Relationship Specialty Start Date End Date Sheridan Ferrer PA PCP - General Physician First Mate 02/02/18 documented as of this encounter
--- OUTSIDE RECORDS SUMMARY | 2024-09-08 03:37 | XMS_ITS | Encounter Summary ---
Author Organization [facility] Address [address] [place] [address] Care Team Providers Care Kettle Cleaner Name Role Phone Sheridan Ferrer Primary Care Provider +1- [phone] Encounter Details Date Type Department Care Team (Late st Contact Info) Description 12/18/2003 Outpatient Historical [facility] Medicine [place] [address] [place] [address] [address] [place] [address] Reymundo Dye MD [address] [place] [id number] Social History Tobacco Use Types Packs/Day Years Used Date Smoking Tobacco: Never Assessed Comments Unknown Sex and Gender Information Value Date Recorded Sex Assigned at Not on file Legal Sex Female 4:10 AM CAR CHASER Gender Identity Not on file Sexual Orientation Not on file documented as of this encounter Plan of Treatment Not on file documented as of this encounter Visit Diagnoses Not on filedocumented in this encounter Additional Health Concerns Infection Onset Date Last Indicated Resolved Time R/O COVID-19 02/01/2024 02/01/2024 02/01/2024 10:5 1 AM CAR CHASER documented as of this encounter Care Teams Kettle Cleaner Relationship Specialty Start Date End Date Sheridan Ferrer PA PCP - General Physician Lab Tester 02/02/18 documented as of this encounter
--- OUTSIDE RECORDS SUMMARY | 2024-09-08 03:37 | XMS_ITS | Encounter Summary ---
Author Organization [facility] Address [address] [place] [address] Care Team Providers Care Web Press Operator Name Role Phone Sheridan Ferrer Primary Care Provider +1- [phone] Encounter Details Date Type Department Care Team (Late st Contact Info) Description 04/28/2003 Outpatient Historical [facility] Medicine [place] [address] [place] [address] [address] [place] [address] Reymundo Dye MD [address] [place] [id number] Social History Tobacco Use Types Packs/Day Years Used Date Smoking Tobacco: Never Assessed Comments Unknown Sex and Gender Information Value Date Recorded Sex Assigned at Not on file Legal Sex Female 4:10 AM CUSTOMER SUPPORT SPECIALIST Gender Identity Not on file Sexual Orientation Not on file documented as of this encounter Plan of Treatment Not on file documented as of this encounter Visit Diagnoses Not on filedocumented in this encounter Additional Health Concerns Infection Onset Date Last Indicated Resolved Time R/O COVID-19 02/01/2024 02/01/2024 02/01/2024 10:5 1 AM CUSTOMER SUPPORT SPECIALIST documented as of this encounter Care Teams Web Press Operator Relationship Specialty Start Date End Date Sheridan Ferrer PA PCP - General Physician Area Field Person 02/02/18 documented as of this encounter
--- OUTSIDE RECORDS SUMMARY | 2024-09-08 03:37 | XMS_ITS | Encounter Summary ---
Author Organization [employer] Address [address] [place] [address] Care Team Providers Care Bulb Grower Name Role Phone Sheridan Ferrer Primary Care Provider +1- [phone] Encounter Details Date Type Department Care Team (Late st Contact Info) Description 04/28/2003 Outpatient Historical [facility] Reymundo Dye MD [address] [place] [address] CERVICALGIA (Primary Dx) Social History Tobacco Use Types Packs/Day Years Used Date Smoking Tobacco: Never Assessed Comments Unknown Sex and Gender Information Value Date Recorded Sex Assigned at Not on file Legal Sex Female 4:10 AM WHIP OPERATOR Gender Identity Not on file Sexual Orientation Not on file documented as of this encounter Plan of Treatment Not on file documented as of this encounter Visit Diagnoses Diagnosis Cervicalgia- Primary documented in this encounter Additional Health Concerns Infection Onset Date Last Indicated Resolved Time R/O COVID-19 02/01/2024 02/01/2024 02/01/2024 10:5 1 AM WHIP OPERATOR documented as of this encounter Care Teams Bulb Grower Relationship Specialty Start Date End Date Sheridan Ferrer PA PCP - General Physician Service Planner 02/02/18 documented as of this encounter
--- OUTSIDE RECORDS SUMMARY | 2024-09-08 03:37 | XMS_ITS | Encounter Summary ---
Author Organization [employer] Address [address] [place] [address] Care Team Providers Care Clinical Data Specialist Name Role Phone Sheridan Ferrer Primary Care Provider +1- [phone] Encounter Details Date Type Department Care Team (Late st Contact Info) Description 07/15/2004 Outpatient Historical [facility] Shady Acosta MD [address] [place] [address] DIARRHEA NOS (Primary Dx) Social History Tobacco Use Types Packs/Day Years Used Date Smoking Tobacco: Never Assessed Comments Unknown Sex and Gender Information Value Date Recorded Sex Assigned at Not on file Legal Sex Female 4:10 AM FARMHAND Gender Identity Not on file Sexual Orientation Not on file documented as of this encounter Plan of Treatment Not on file documented as of this encounter Visit Diagnoses Diagnosis Diarrhea- Primary documented in this encounter Additional Health Concerns Infection Onset Date Last Indicated Resolved Time R/O COVID-19 02/01/2024 02/01/2024 02/01/2024 10:5 1 AM FARMHAND documented as of this encounter Care Teams Clinical Data Specialist Relationship Specialty Start Date End Date Sheridan Ferrer PA PCP - General Physician Microwave Supervisor 02/02/18 documented as of this encounter
--- OUTSIDE RECORDS SUMMARY | 2024-09-08 03:37 | XMS_ITS | Encounter Summary ---
Author Organization [employer] Address [address] [place] [address] Care Team Providers Care Tank Bottom Assembler Name Role Phone Sheridan Ferrer Primary Care Provider +1- [phone] Encounter Details Date Type Department Care Team (Late st Contact Info) Description 07/15/2004 Outpatient Historical [facility] Shady Acosta MD [address] [place] [address] NONINFEC GASTROENTERIT NEC (Primary Dx) Social History Tobacco Use Types Packs/Day Years Used Date Smoking Tobacco: Never Assessed Comments Unknown Sex and Gender Information Value Date Recorded Sex Assigned at Not on file Legal Sex Female 4:10 AM INTERACTIVE DEVELOPER Gender Identity Not on file Sexual Orientation Not on file documented as of this encounter Plan of Treatment Not on file documented as of this encounter Visit Diagnoses Diagnosis Other and unspecified noninfectious gastroenteritis and colitis(558.9)- Primary Other and unspecified noninfectious gastroenteritis and colitis documented in this encounter Additional Health Concerns Infection Onset Date Last Indicated Resolved Time R/O COVID-19 02/01/2024 02/01/2024 02/01/2024 10:5 1 AM INTERACTIVE DEVELOPER documented as of this encounter Care Teams Tank Bottom Assembler Relationship Specialty Start Date End Date Sheridan Ferrer PA PCP - General Physician Cattle Dealer 02/02/18 documented as of this encounter
--- OUTSIDE RECORDS SUMMARY | 2024-09-08 03:37 | XMS_ITS | Encounter Summary ---
Author Organization [employer] Address [address] [place] [address] Care Team Providers Care Coroner Name Role Phone Sheridan Ferrer Primary Care Provider +1- [phone] Encounter Details Date Type Department Care Team (Late st Contact Info) Description 07/11/2004 Outpatient Historical [facility] Roger Valerio MD [address] [place] [address] ABDOMINAL TENDERNESS GENERALIZED (Primary Dx) Social History Tobacco Use Types Packs/Day Years Used Date Smoking Tobacco: Never Assessed Comments Unknown Sex and Gender Information Value Date Recorded Sex Assigned at Not on file Legal Sex Female 4:10 AM WORKDAY SENIOR ASSOCIATE Gender Identity Not on file Sexual Orientation Not on file documented as of this encounter Plan of Treatment Not on file documented as of this encounter Procedures Procedure Name Priority Date/Time Associated Diagnosis Comments CBC WITH DIFFERENTIAL Routine 07/11/2004 11:30 AM CDT CBC WITH DIFFERENTIAL Routine 07/11/2004 11:30 AM CDT documented in this encounter Results * CBC WITH DIFFERENTIAL (07/11/2004 11:30 AM CDT) NEUTROPHILS 64 45 - 70 % INTERFAC E SYSTEM LYMPHOCYTES 27 16 - 45 % INTERFAC E SYSTEM MONOCYTES 7 3 - 13 % INTERFACE SYSTEM EOSINOPHILS 2 0 - 7 % INTERFAC E SYSTEM BASOPHILS 0 0 - 2 % INTERFACE SYSTEM NEUTROPHIL ABSOLUTE 4.73 1.90 - 7.00 K/uL INTERFACE SYSTEM LYMPHOCYTE ABSOLUTE 2.02 0.70 - 4.50 K/uL INTERFACE SYSTEM MONOCYTE ABSOLUTE 0.51 0.10 - 1.30 K/uL INTERFACE SYSTEM EOSINOPHIL ABSOLUTE 0.13 0.00 - 0.70 K/uL INTERFACE SYSTEM BASOPHILS ABSOLUTE 0.03 0.00 - 0.20 K/uL INTERFACE SYSTEM 07/11/2004 11:3 0 AM CDT Roger Valerio MD HEMATOLOGY ORDERABLES Final R esult Performing Organization Address [facility] de Phone Number INTERFACE SYSTEM Refer to clinic/hospital department * CBC WITH DIFFERENTIAL (07/11/2004 11:30 AM CDT) WBC 7.4 4.0 - 9.8 K/uL INTERFACE SYSTEM RBC 4.14 3.90 - 4.90 M/uL INTERFACE SYSTEM HEMOGLOBIN 13.1 11.8 - 14.8 g/dL INTERFACE SYSTEM HEMATOCRIT 39.4 35.5 - 44.0 % INTERFACE SYSTEM MCV 95.2 82.0 - 99.0 fL INTERFACE SYSTEM MCH 31.6 27.2 - 32.6 pg INTERFACE SYSTEM MCHC 33.2 31.5 - 35.5 % INTERFACE SYSTEM RDW 13.2 11.5 - 14.5 % INTERFACE SYSTEM RDW-STDEV 46.1 37.1 - 48.7 fL INTERFACE SYSTEM PLATELETS 304 140 - 350 K/uL INTERFACE SYSTEM MPV 11.1 9.3 - 12.4 fL INTERFACE SYSTEM 07/11/2004 11:3 0 AM CDT Roger Valerio MD HEMATOLOGY ORDERABLES Final R esult Performing Organization Address [facility] Phone Number INTERFACE SYSTEM Refer to clinic/hospital department documented in this encounter Visit Diagnoses Diagnosis Abdominal tenderness, generalized- Primary documented in this encounter Additional Health Concerns Infection Onset Date Last Indicated Resolved Time R/O COVID-19 02/01/2024 02/01/2024 02/01/2024 10:5 1 AM WORKDAY SENIOR ASSOCIATE documented as of this encounter Care Teams Coroner Relationship Specialty Start Date End Date Sheridan Ferrer PA PCP - General Physician Traffic Technician 02/02/18 documented as of this encounter
--- OUTSIDE RECORDS SUMMARY | 2024-09-08 03:37 | XMS_ITS | Encounter Summary ---
Author Organization [employer] Address [address] [place] [address] Care Team Providers Care Welder Operator Name Role Phone Sheridan Ferrer Primary Care Provider +1- [phone] Encounter Details Date Type Department Care Team (Late st Contact Info) Description 04/21/2005 Outpatient Historical [facility] OBSERV[facility] IN BED Julita Hall MD [address] [address] FEMALE GENITAL SYMPTOMS NOS (Primary Dx) Social History Tobacco Use Types Packs/Day Years Used Date Smoking Tobacco: Never Assessed Comments Unknown Sex and Gender Information Value Date Recorded Sex Assigned at Not on file Legal Sex Female 4:10 AM DRAGGER Gender Identity Not on file Sexual Orientation Not on file documented as of this encounter Plan of Treatment Not on file documented as of this encounter Procedures Procedure Name Priority Date/Time Associated Diagnosis Comments CBC WITH DIFFERENTIAL Routine 04/22/2005 4:15 AM DRAGGER CBC WITH DIFFERENTIAL Routine 04/22/2005 4:15 AM DRAGGER CBC WITH DIFFERENTIAL Routine 04/07/2005 3:45 PM DRAGGER CBC WITH DIFFERENTIAL Routine 04/07/2005 3:45 PM DRAGGER URINALYSIS W/REFLEX MICROSCOPIC Routine 04/07/2005 3:40 PM DRAGGER documented in this encounter Results * CBC WITH DIFFERENTIAL (04/22/2005 4:15 AM DRAGGER) NEUTROPHILS 65 45 - 70 % INTERFAC E SYSTEM LYMPHOCYTES 26 16 - 45 % INTERFAC E SYSTEM MONOCYTES 9 3 - 13 % INTERFACE SYSTEM EOSINOPHILS 1 0 - 7 % INTERFAC E SYSTEM BASOPHILS 0 0 - 2 % INTERFACE SYSTEM NEUTROPHIL ABSOLUTE 6.56 1.90 - 7.00 K/uL INTERFACE SYSTEM LYMPHOCYTE ABSOLUTE 2.60 0.70 - 4.50 K/uL INTERFACE SYSTEM MONOCYTE ABSOLUTE 0.90 0.10 - 1.30 K/uL INTERFACE SYSTEM EOSINOPHIL ABSOLUTE 0.05 0.00 - 0.70 K/uL INTERFACE SYSTEM BASOPHILS ABSOLUTE 0.01 0.00 - 0.20 K/uL INTERFACE SYSTEM 04/22/2005 4:15 AM DRAGGER Julita Hall MD HEMATOLOGY ORDERABLES Nida l Result Performing Organization Address [facility] de Phone Number INTERFACE SYSTEM Refer to clinic/hospital department * (ABNORMAL) CBC WITH DIFFERENTIAL (04/22/2005 4:15 AM DRAGGER) [facility] WBC 10.1(H) 4.0 - 9.8 K/uL INTERFACE SYSTEM RBC 3.40(L) 3.90 - 4.90 M/uL INTERFACE SYSTEM HEMOGLOBIN 10.7(L) 11.8 - 14.8 g/dL INTERFACE SYSTEM HEMATOCRIT 31.7(L) 35.5 - 44.0 % INTERFACE SYSTEM MCV 93.2 82.0 - 99.0 fL INTERFACE SYSTEM MCH 31.5 27.2 - 32.6 pg INTERFACE SYSTEM MCHC 33.8 31.5 - 35.5 % INTERFACE SYSTEM RDW 12.7 11.5 - 14.5 % INTERFACE SYSTEM RDW-STDEV 43.3 37.1 - 48.7 fL INTERFACE SYSTEM PLATELETS 284 140 - 350 K/uL INTERFACE SYSTEM MPV 10.1 9.3 - 12.4 fL INTERFACE SYSTEM 04/22/2005 4:15 AM DRAGGER Julita Hall MD HEMATOLOGY ORDERABLES Nida l Result Performing Organization Address City/[facility] Co de Phone Number INTERFACE SYSTEM Refer to clinic/hospital department * CBC WITH DIFFERENTIAL (04/07/2005 3:45 PM DRAGGER) [facility] NEUTROPHILS 51 45 - 70 % INTERFAC E SYSTEM LYMPHOCYTES 40 16 - 45 % INTERFAC E SYSTEM MONOCYTES 6 3 - 13 % INTERFACE SYSTEM EOSINOPHILS 3 0 - 7 % INTERFAC E SYSTEM BASOPHILS 1 0 - 2 % INTERFACE SYSTEM NEUTROPHIL ABSOLUTE 4.08 1.90 - 7.00 K/uL INTERFACE SYSTEM LYMPHOCYTE ABSOLUTE 3.21 0.70 - 4.50 K/uL INTERFACE SYSTEM MONOCYTE ABSOLUTE 0.51 0.10 - 1.30 K/uL INTERFACE SYSTEM EOSINOPHIL ABSOLUTE 0.20 0.00 - 0.70 K/uL INTERFACE SYSTEM BASOPHILS ABSOLUTE 0.04 0.00 - 0.20 K/uL INTERFACE SYSTEM 04/07/2005 3:45 PM DRAGGER Julita Hall MD HEMATOLOGY ORDERABLES Nida l Result Performing Organization Address City/[facility]/ZIP Co de Phone Number INTERFACE SYSTEM Refer to clinic/hospital department * CBC WITH DIFFERENTIAL (04/07/2005 3:45 PM DRAGGER) Pathologist [facility] WBC 8.0 4.0 - 9.8 K/uL INTERFACE SYSTEM RBC 3.95 3.90 - 4.90 M/uL INTERFACE SYSTEM HEMOGLOBIN 12.5 11.8 - 14.8 g/dL INTERFACE SYSTEM HEMATOCRIT 36.9 35.5 - 44.0 % INTERFACE SYSTEM MCV 93.4 82.0 - 99.0 fL INTERFACE SYSTEM MCH 31.6 27.2 - 32.6 pg INTERFACE SYSTEM MCHC 33.9 31.5 - 35.5 % INTERFACE SYSTEM RDW 12.7 11.5 - 14.5 % INTERFACE SYSTEM RDW-STDEV 44.1 37.1 - 48.7 fL INTERFACE SYSTEM PLATELETS 295 140 - 350 K/uL INTERFACE SYSTEM MPV 10.4 9.3 - 12.4 fL INTERFACE SYSTEM 04/07/2005 3:45 PM DRAGGER Julita Hall MD HEMATOLOGY ORDERABLES Nida l Result Performing Organization Address City/[facility]/ZIP Co de Phone Number INTERFACE SYSTEM Refer to clinic/hospital department * URINALYSIS (04/07/2005 3:40 PM DRAGGER) Pathologist [facility] MACRO COMMENT Culture in Progress INTERFACE SYSTEM COLOR UA Yellow INTERFACE SYSTEM CLARITY UA Clear Clear INTERFACE SYSTEM SPECIFIC GRAVITY UA 1.020 1.001 - 1.035 INTERFACE SYSTEM PH UA 6.0 5.0 - 8.0 INTERFACE SYSTEM LEUKOCYTE ESTERASE UA Negative Negative INTERFACE SYSTEM NITRITE UA Negative Negative INTERFACE SYSTEM PROTEIN UA Negative Negative INTERFACE SYSTEM GLUCOSE UA Negative Negative INTERFACE SYSTEM KETONES UA Negative Negative INTERFACE SYSTEM UROBILINOGEN UA <1 <1 mg/dL INTE RFACE SYSTEM BILIRUBIN UA Negative Negative INTERFA CE SYSTEM BLOOD UA Negative Negative INTERFACE SYSTEM 04/07/2005 3:40 PM DRAGGER us Julita Hall MD URINE ORDERABLES Final Res ult INTERFACE SYSTEM Refer to clinic/hospital department documented in this encounter Visit Diagnoses Diagnosis Unspecified symptom associated with female genital organs- Primary documented in this encounter Additional Health Concerns Infection Onset Date Last Indicated Resolved Time R/O COVID-19 02/01/2024 02/01/2024 02/01/2024 10:5 1 AM DRAGGER documented as of this encounter Care Teams Welder Operator Relationship Specialty Start Date End Date Sheridan Ferrer PA PCP - General Physician Cloth Finishing Range Back Tender 02/02/18 documented as of this encounter
--- OUTSIDE RECORDS SUMMARY | 2024-09-08 03:37 | XMS_ITS | Encounter Summary ---
Author Organization [facility] Address [address] [place] [address] Care Team Providers Care Primer And Powder Canning Leader Name Role Phone Sheridan Ferrer Primary Care Provider +1- [phone] Encounter Details Date Type Department Care Team (Late st Contact Info) Description 06/11/2004 Outpatient Historical [facility] Medicine [place] [address] [place] [address] [address] [place] [address] Reymundo Dye MD [address] [place] [address] Social History Tobacco Use Types Packs/Day Years Used Date Smoking Tobacco: Never Assessed Comments Unknown Sex and Gender Information Value Date Recorded Sex Assigned at Not on file Legal Sex Female 4:10 AM ORDER RUNNER Gender Identity Not on file Sexual Orientation Not on file documented as of this encounter Last Filed Vital Signs Vital Sign Reading Time Taken Comments Blood Pressure 124/84 06/11/2004 9:30 AM ORDER RUNNER Pulse 88 06/11/2004 9:30 AM ORDER RUNNER Temperature 36.3 C (97.4 F) 06/11/2004 9:30 AM ORDER RUNNER Respiratory Rate 16 06/11/2004 9:30 AM ORDER RUNNER Oxygen Saturation - - Inhaled Oxygen Concentration - - Weight 66.7 kg (147 lb) 06/11/2004 9:30 AM ORDER RUNNER Height 170.2 cm (5' 7) 06/11/2004 9:30 AM ORDER RUNNER Body Mass Index 23.02 06/11/2004 9:30 AM ORDER RUNNER documented in this encounter Plan of Treatment Not on file documented as of this encounter Visit Diagnoses Not on filedocumented in this encounter Additional Health Concerns Infection Onset Date Last Indicated Resolved Time R/O COVID-19 02/01/2024 02/01/2024 02/01/2024 10:5 1 AM ORDER RUNNER documented as of this encounter Care Teams Primer And Powder Canning Leader Relationship Specialty Start Date End Date Sheridan Ferrer PA PCP - General Physician Sliver Lap Tender 02/02/18 documented as of this encounter
--- OUTSIDE RECORDS SUMMARY | 2024-09-08 03:37 | XMS_ITS | Encounter Summary ---
Author Organization [facility] Address [address] [place] [address] Care Team Providers Care Machine Farmworker Name Role Phone Sheridan Ferrer Primary Care Provider +1- [phone] Encounter Details Date Type Department Care Team (Late st Contact Info) Description 05/16/2008 Outpatient Historical [facility] RADIOLOGY Kasi Hernandez, [place] [address] [place] [address] Social History Tobacco Use Types Packs/Day Years Used Date Smoking Tobacco: Never Assessed Comments Unknown Sex and Gender Information Value Date Recorded Sex Assigned at Not on file Legal Sex Female 4:10 AM FLUID DESIGNER Gender Identity Not on file Sexual Orientation Not on file documented as of this encounter Plan of Treatment Not on file documented as of this encounter Procedures Procedure Name Priority Date/Time Associated Diagnosis Comments XR CERVICAL SPINE 4 OR 5 VIEWS Routine 05/16/2008 12:15 PM FLUID DESIGNER documented in this encounter Results * XR CERVICAL SPINE MIN 4+ VW (05/16/2008 12:15 PM FLUID DESIGNER) Anatomical Region Laterality Modality Spine Other 05/16/2008 12:1 5 PM FLUID DESIGNER Narrative 05/16/2008 12:[address] [facility] [address] [address] Admit Date: 05/16/2008 ELLEDEBRA Sex: F Admit Prov: Bang HERNANDEZ Date: 1975 Primary Care Prov: SARA JIMENEZ CMRN: [id number] [id number] [facility] Ordering Prov: N/A Accession Number: [id number] Interpretation CERVICAL SPINE, 5 VIEWS, 05/16/2008 Indication: Pain. Findings: Cervical alignment is normal. There is no fracture, subluxation, or disc space narrowing. The facet and uncovertebral joints are normal. The prevertebral soft tissues are normal. Impression: Normal. . Dictated by: JOHAN AGUILLON 05/16/2008 12:37 Electronically signed by: JOHAN AGUILLON 05/16/2008 12:48 Transcribed: 05/16/2008 12:46 DKT Procedure Note Johan Aguillon - 05/16/[address] [address] Admit Date: 05/16/2008 DEBRA MENON Sex: F Admit Prov: Bang HERNANDEZ Date: 1975 Primary Care Prov: SARA JIMENEZ CMRN: [id number] Room: [facility] SSN: [id number] IMAGING SERVICES Ordering Prov: N/A Interpretation CERVICAL SPINE, 5 VIEWS, 05/16/2008 Indication: Pain. Findings: Cervical alignment is normal. There is no fracture, subluxation, ordisc space narrowing. The facet and uncovertebral joints are normal. The prevertebral soft tissues are normal. Impression: Normal. . Dictated by: JOHAN AGUILLON 05/16/2008 12:37 Electronically signed by: JOHAN AGUILLON 05/16/2008 12:48 Transcribed: 05/16/2008 12:46 DKT Kasi Hernandez DC DIAGNOSTIC IMAGING OR DERABLES Final Result documented in this encounter Visit Diagnoses Not on filedocumented in this encounter Additional Health Concerns Infection Onset Date Last Indicated Resolved Time R/O COVID-19 02/01/2024 02/01/2024 02/01/2024 10:5 1 AM FLUID DESIGNER documented as of this encounter Care Teams Machine Farmworker Relationship Specialty Start Date End Date Sheridan Ferrer PA PCP - General Physician Screw Supervisor 02/02/18 documented as of this encounter
--- OUTSIDE RECORDS SUMMARY | 2024-09-08 03:37 | XMS_ITS | Encounter Summary ---
Author Organization [facility] Address [address] [place] [address] Care Team Providers Care Armoring Machine Operator Name Role Phone Sheridan Ferrer Primary Care Provider +1- [phone] Encounter Details Date Type Department Care Team (Latest Contact Info) Description 06/10/2004 Outpatient Historical [facility] Earnest Almaguer DO MIGRAINE NOS W/O MENTN INTRACTABLE (Primary Dx) Social History Tobacco Use Types Packs/Day Years Used Date Smoking Tobacco: Never Assessed Comments Unknown Sex and Gender Information Value Date Recorded Sex Assigned at Not on file Legal Sex Female 4:10 AM EMERGENCY DEPT TECH Gender Identity Not on file Sexual Orientation Not on file documented as of this encounter Plan of Treatment Not on file documented as of this encounter Procedures Procedure Name Priority Date/Time Associated Diagnosis Comments SPINAL FLUID CELL COUNT W/REFLEXIVE DIFF Routine 06/10/2004 1:45 PM EMERGENCY DEPT TECH TOTAL PROTEIN, CSF Routine 06/10/2004 1: 45 PM EMERGENCY DEPT TECH GLUCOSE, CSF Routine 06/10/2004 1:45 PM EMERGENCY DEPT TECH CBC WITH DIFFERENTIAL Routine 06/10/2004 12:30 PM EMERGENCY DEPT TECH CBC WITH DIFFERENTIAL Routine 06/10/2004 12:30 PM EMERGENCY DEPT TECH BASIC METABOLIC PANEL Routine 06/10/2004 12:30 PM EMERGENCY DEPT TECH documented in this encounter Results * TOTAL PROTEIN, CSF (06/10/2004 1:45 PM EMERGENCY DEPT TECH) PROTEIN, CSF 51 15 - 60 mg/dL INTERFACE SYSTEM 06/10/2004 1:45 PM EMERGENCY DEPT TECH [facility] BODY FLUIDS AND STOOLS Fi nal Result Performing Organization Address [facility] Phone Number INTERFACE SYSTEM Refer to clinic/hospital department * GLUCOSE, CSF (06/10/2004 1:45 PM EMERGENCY DEPT TECH) GLUCOSE, CSF 55 41 - 75 mg/dL INTERFACE SYSTEM 06/10/2004 1:45 PM EMERGENCY DEPT TECH [facility] BODY FLUIDS AND STOOLS Fi nal Result Performing Organization Address [facility] Phone Number INTERFACE SYSTEM Refer to clinic/hospital department * SPINAL FLUID CELL COUNT W/REFLEXIVE DIFF (06/10/2004 1:45 PM EMERGENCY DEPT TECH) COLOR, CSF Colorless Colorless INTERFACE SYSTEM APPEARANCE, CSF Clear Clear INTERFACE SYSTEM TUBE #, CSF 3 INTERFAC E SYSTEM VOLUME, CSF 1.0 mL INTERFAC E SYSTEM WBC, CSF 0 0 - 10 /uL INTERFACE SYSTEM RBC, CSF 0 <=0 /uL INTERFACE SYSTEM 06/10/2004 1:45 PM EMERGENCY DEPT TECH Result [facility] BODY FLUIDS AND STOOLS Fi nal Result Performing Organization Address [facility] Phone Number INTERFACE SYSTEM Refer to clinic/hospital department * BASIC METABOLIC PANEL (06/10/2004 12:30 PM EMERGENCY DEPT TECH) GLUCOSE 92 65 - 109 mg/dL INTERFACE SYSTEM CREATININE 0.6 0.4 - 1.2 mg/dL INTERFACE SYSTEM CALCIUM 9.7 8.6 - 10.2 mg/dL INTERFACE SYSTEM BUN 15 6 - 20 mg/dL INTERFACE SYSTEM SODIUM 141 135 - 145 mmol/L INTERFACE SYSTEM POTASSIUM 4.8 3.5 - 4.9 mmol/L INTERFACE SYSTEM CHLORIDE 106 96 - 108 mmol/L INTERFACE SYSTEM CO2 28 22 - 30 mmol/L INTERFACE SYSTEM 06/10/2004 12:3 0 PM EMERGENCY DEPT TECH [facility] CHEMISTRY ORDERABLES Nida l Result Performing Organization Address [facility] Phone Number INTERFACE SYSTEM Refer to clinic/hospital department * (ABNORMAL) CBC WITH DIFFERENTIAL (06/10/2004 12:30 PM EMERGENCY DEPT TECH) NEUTROPHILS 73(H) 45 - 70 % INTERFAC E SYSTEM LYMPHOCYTES 20 16 - 45 % INTERFAC E SYSTEM MONOCYTES 7 3 - 13 % INTERFACE SYSTEM EOSINOPHILS 0 0 - 7 % INTERFAC E SYSTEM BASOPHILS 0 0 - 2 % INTERFACE SYSTEM NEUTROPHIL ABSOLUTE 7.39(H) 1.90 - 7.00 K/uL INTERFACE SYSTEM LYMPHOCYTE ABSOLUTE 2.08 0.70 - 4.50 K/uL INTERFACE SYSTEM MONOCYTE ABSOLUTE 0.66 0.10 - 1.30 K/uL INTERFACE SYSTEM EOSINOPHIL ABSOLUTE 0.02 0.00 - 0.70 K/uL INTERFACE SYSTEM BASOPHILS ABSOLUTE 0.03 0.00 - 0.20 K/uL INTERFACE SYSTEM 06/10/2004 12:3 0 PM EMERGENCY DEPT TECH [facility] HEMATOLOGY ORDERABLES Fin al Result Performing Organization Address [facility] Phone Number INTERFACE SYSTEM Refer to clinic/hospital department * (ABNORMAL) CBC WITH DIFFERENTIAL (06/10/2004 12:30 PM EMERGENCY DEPT TECH) WBC 10.2(H) 4.0 - 9.8 K/uL INTERFACE SYSTEM RBC 4.33 3.90 - 4.90 M/uL INTERFACE SYSTEM HEMOGLOBIN 13.8 11.8 - 14.8 g/dL INTERFACE SYSTEM HEMATOCRIT 41.7 35.5 - 44.0 % INTERFACE SYSTEM MCV 96.3 82.0 - 99.0 fL INTERFACE SYSTEM MCH 31.9 27.2 - 32.6 pg INTERFACE SYSTEM MCHC 33.1 31.5 - 35.5 % INTERFACE SYSTEM RDW 12.6 11.5 - 14.5 % INTERFACE SYSTEM RDW-STDEV 44.8 37.1 - 48.7 fL INTERFACE SYSTEM PLATELETS 304 140 - 350 K/uL INTERFACE SYSTEM MPV 10.5 9.3 - 12.4 fL INTERFACE SYSTEM 06/10/2004 12:3 0 PM EMERGENCY DEPT TECH us Earnest Meraz DO HEMATOLOGY ORDERABLES Fin al Result INTERFACE SYSTEM Refer to clinic/hospital department documented in this encounter Visit Diagnoses Diagnosis Migraine, unspecified, without mention of intractable migraine without mention of status migrainosus- Primary documented in this encounter Additional Health Concerns Infection Onset Date Last Indicated Resolved Time R/O COVID-19 02/01/2024 02/01/2024 02/01/2024 10:5 1 AM EMERGENCY DEPT TECH documented as of this encounter Care Teams Armoring Machine Operator Relationship Specialty Start Date End Date Sheridan Ferrer PA PCP - General Physician Stone Cutter 02/02/18 documented as of this encounter
--- OUTSIDE RECORDS SUMMARY | 2024-09-08 03:37 | XMS_ITS | Encounter Summary ---
Author Organization [facility] Address [address] [place] [address] Care Team Providers Care Sales Data Analyst Name Role Phone Sheridan Ferrer Primary Care Provider +1- [phone] Encounter Details Date Type Department Care Team (Late st Contact Info) Description 04/07/2005 Outpatient Historical [facility] Support Services Cardiac [address] [place] [address] Mau Conde MD Social History Tobacco Use Types Packs/Day Years Used Date Smoking Tobacco: Never Assessed Comments Unknown Sex and Gender Information Value Date Recorded Sex Assigned at Not on file Legal Sex Female 4:10 AM US CUSTOMS AND BORDER OFFICER Gender Identity Not on file Sexual Orientation Not on file documented as of this encounter Plan of Treatment Not on file documented as of this encounter Visit Diagnoses Not on filedocumented in this encounter Additional Health Concerns Infection Onset Date Last Indicated Resolved Time R/O COVID-19 02/01/2024 02/01/2024 02/01/2024 10:5 1 AM US CUSTOMS AND BORDER OFFICER documented as of this encounter Care Teams Sales Data Analyst Relationship Specialty Start Date End Date Sheridan Ferrer PA PCP - General Physician Green Ware Caster 02/02/18 documented as of this encounter
--- OUTSIDE RECORDS SUMMARY | 2024-09-08 03:37 | XMS_ITS | Encounter Summary ---
Author Organization [facility] Address [address] [place] [address] Care Team Providers Care Medical Affairs Director Name Role Phone Sheridan Ferrer Primary Care Provider +1- [phone] Encounter Details Date Type Department Care Team (Late st Contact Info) Description 02/28/2004 Outpatient Historical [facility] [place] [address] [place] [address] [address] [place] [address] Reymundo Dye MD [address] [place] [id number] Social History Tobacco Use Types Packs/Day Years Used Date Smoking Tobacco: Never Assessed Comments Unknown Sex and Gender Information Value Date Recorded Sex Assigned at Not on file Legal Sex Female 4:10 AM PROFESSOR OF SPECIAL EDUCATION Gender Identity Not on file Sexual Orientation Not on file documented as of this encounter Plan of Treatment Not on file documented as of this encounter Visit Diagnoses Not on filedocumented in this encounter Additional Health Concerns Infection Onset Date Last Indicated Resolved Time R/O COVID-19 02/01/2024 02/01/2024 02/01/2024 10:5 1 AM PROFESSOR OF SPECIAL EDUCATION documented as of this encounter Care Teams Medical Affairs Director Relationship Specialty Start Date End Date Sheridan Ferrer PA PCP - General Physician Radioisotope Technician 02/02/18 documented as of this encounter
--- OUTSIDE RECORDS SUMMARY | 2024-09-08 03:37 | XMS_ITS | Encounter Summary ---
Author Organization [facility] Address [address] [place] [address] Care Team Providers Care Card Placer Name Role Phone Sheridan Ferrre Primary Care Provider +1- [phone] Encounter Details Date Type Department Care Team (Late st Contact Info) Description 06/07/2003 [facility] [address] [place] [id number] Aniecto Vitale MD NO ADDRESS ON FILE Social History Tobacco Use Types Packs/Day Years Used Date Smoking Tobacco: Never Assessed Comments Unknown Sex and Gender Information Value Date Recorded Sex Assigned at Not on file Legal Sex Female 4:10 AM DIRECTOR OF GROUP SALES Gender Identity Not on file Sexual Orientation Not on file documented as of this encounter Plan of Treatment Not on file documented as of this encounter Visit Diagnoses Not on filedocumented in this encounter Additional Health Concerns Infection Onset Date Last Indicated Resolved Time R/O COVID-19 02/01/2024 02/01/2024 02/01/2024 10:5 1 AM DIRECTOR OF GROUP SALES documented as of this encounter Care Teams Card Placer Relationship Specialty Start Date End Date Sheridan Ferrer PA PCP - General Physician Ux Designer 02/02/18 documented as of this encounter
--- NOTE | 2024-09-08 09:20 | WPDANESEPPF ---
Anes - Initial Pre Proc Eval Procedure: Operation Date: 09/08/24 10:30 Proposed Procedures p Bilateral Breast Augmentation - Jere Byers MD Date/Time: 09/08/24 09:20 Surgeon: Jere Byers MD Pre Op Diagnosis: micromastia Patient Data Age: 48 Gender: F Height: 1.7 m Weight: 62.7 kg Allergies Allergy/AdvReac Type Severity Reaction Status Date / Time Penicillins Allergy Severe Anaphylaxis Verified 08/31/24 14:31 Home Medications ?Medication ?Instructions ?Recorded ?Confirmed ?Type No Home Medications 08/31/24 08/31/24 History Patient hx anesthesia problems: none Family hx anesthesia problems: none Results Review: All pre-operative results and documents have been reviewed as part of the pre-operative evaluation. [facility] Social History Social History Years smoked: 15 Smoking status: Former smoker Tobacco type: cigarettes Smoking end date: 08/31/12 Alcohol intake: current Living arrangements: with family Spiritual care concerns: No Anes - Eval Final PreProcedure Day of Procedure 09/08/24 09:20 Patient weight: normal Heart: regular rate and rhythm Lungs: clear to auscultation Airway: Mallampati scale class II Neurological: alert and oriented Last oral intake: >/= 8 hours ASA classification: II Emergent: no Anesthetic plan: proceed Anesthesia type and monitoring: general LMA and standard monitoring Results Review: All pre-operative results and documents have been reviewed as part of the pre-operative evaluation. Informed Consent: The patient's anesthetic plan and its attendant risks and benefits were discussed with the patient/family/POA. Questions were solicited and answers provided to the satisfaction of the patient/family/POA.
--- NOTE | 2024-09-08 09:52 | WPDHPUPDATE1 ---
History and Physical Update Update Date/Time: 09/08/24 09:52 History and Physical has been reviewed, including an updated exam of the patient. There are NO changes in the patient's condition. Risks, benefits, and alternatives have been discussed and questions answered. Patient agrees to proceed with procedure.
--- NOTE | 2024-09-08 09:53 | WPDHPUPDATE1 ---
History and Physical Update Update Date/Time: 09/08/24 09:53 History and Physical has been reviewed, including an updated exam of the patient. There are NO changes in the patient's condition. Risks, benefits, and alternatives have been discussed and questions answered. Patient agrees to proceed with procedure.
--- NOTE | 2024-09-08 09:57 | W.PM.PROC2 ---
Procedure Note - Detailed Date of Procedure 09/08/24 Pre-op Diagnosis micromastia Post-op Diagnosis Same Procedure Performed Bilateral augmentation mammaplasty Surgeon Jere Byers MD Anesthesia General Findings Bilateral Gaby Figueroa Cohesive 650cc Subfascial Right: REF# [id number] SN [id number] Left: REF# [id number] SN [id number] Description of Procedure She is here today for bilateral breast augmentation. Previously and again today the risks, benefits, alternatives were discussed in extensive detail. We discussed implant sizing and appearance in great detail to make sure she is well informed of her decision and she is very clear (and has been) regarding sizing. I wanted her to be very realistic about the risks involved as well as expectations. We discussed aftercare and what to monitor for. Made sure answered all of her questions to her satisfaction today and consent was obtained. Marked in the preoperative holding area with their verification. The patient was taken to the operating room placed supine on the operating table. Anesthesia was provided by anesthesiology. A surgical time-out was taken. We cleansed the skin and 1% lidocaine and 0.25% Marcaine with epinephrine was used anesthetize as a field block. She was prepped and draped in a standard sterile fashion. Tegaderm nipple Baltazar were placed. A 15 blade used to make an incision along the inframammary fold. Dissection was continued at 45 degree angle until the chest wall as identified. I elevated a subfascial pocket in the appropriate dimensions based on our preoperative planning for the implant. I then copiously irrigated with saline solution and verified a strict hemostasis. Next the use a triple antibiotic and Betadine containing solution to irrigate the pocket. I washed my gloves with the triple antibiotic and Betadine solution. We washed the implant immediately upon opening it with this solution and only opened it when we needed it. I used implant funnel and no-touch technique. The implant was introduced into the pocket using the funnel. Having verified positioning of the implant this was closed using 2-0 PDS followed by 3-0 Monocryl in a running subcuticular 4-0 Monocryl followed by tissue glue. Fluffs and surgical bra were placed. Patient was awoke and taken to PACU without difficulty. All instrument sponge counts were correct at the end of the case. Estimated Blood Loss 20 Drains No Packing No Pathology None sent Complications No immediate complications Condition Stable Disposition PACU
[2024-09-08] MEDS: TRANEXAMIC ACID 1,000MG/ISO100 1,000 MG/100 ML BAG 200 MG IVPB (10:08)
[2024-09-08] MEDS: LACTATED RINGERS 1,000 ML 30 ML IV CONT ×2 (10:08→11:16)
[2024-09-08] MEDS: ceFAZolin 2 GM/D5W 50 ML 2 GM/50 ML BAG IVPB (10:10)
[2024-09-08] MEDS: NACL 0.9% IRRIG POUR BOTTLE 900 ML, GENTAMICIN SULFATE INJ 160 MG, CLINDAMYCIN PHOS INJ... IRRIGATION (10:33)
[2024-09-08] MEDS: BUPivacaine HCL 0.25% PF 30 ML VIAL INFILTRATE (10:40)
== END 2024-09-08 12:39 | disposition home or self-care (01) ==
PROVIDERS: Visit Provider Surgery Plastic and Reconstructive Surgery
PROC: (CPT 19325; principal; 2024-09-08 10:30)
DX: Z41.1 Encounter for cosmetic surgery (principal); N64.82 Hypoplasia of breast
CPT/HCPCS: 19325; A9270; J0690; J1100; J1171; J1200; J1580; J2003; J2004; J2250; J2405; J2704; J3010; J7120